=== PATIENT | male | born 1945 | race Caucasian/White ===

== ENCOUNTER 2019-01-30 07:53 | Emergency (ER) | payer OTHER ==
[2019-01-30] MEDS ORDERED: ALBUTEROL 2.5 MG/3 ML NEB SOL ONE (08:24)
[2019-01-30] MEDS ORDERED: FENTANYL CITR 100 MCG/2 ML ONE (08:25)
[2019-01-30] MEDS ORDERED: ONDANSETRON 4 MG/2 ML VIAL ONE (08:25)
[2019-01-30] MEDS ORDERED: NA CHLORIDE 0.9% 500 ML ONE (08:25)
[2019-01-30 08:48] LABS: Absolute Lymphocytes (CBC) 0.8 K/uL (0.7-4.9); Basophils % 0.7 % (0-1.3); Hematocrit 41.4 % (39.6-49.0); Lymphocytes % 6.8 % (15.3-44.8); MPV 9.2 fL (7.6-11.3); RBC Red Blood Cell Count 4.39 M/uL (4.33-5.43)
[2019-01-30 09:05] LABS: ALT/SGPT 16 U/L (12-78); AST/SGOT 12 U/L (15-37); Albumin 3.6 g/dL (3.4-5.0); Alkaline Phosphatase 66 U/L (45-117); BUN Blood Urea Nitrogen 13 mg/dL (7-18); Bicarbonate 29 mmol/L (21-32); Bilirubin Total 1.3 mg/dL (0.2-1.0); Glucose Level 115 mg/dL (74-106); Potassium 4.1 mmol/L (3.5-5.1); Sodium Level 138 mmol/L (136-145)
--- NOTE | 2019-01-30 10:31 | RAD REPORT ---
EXAM DESCRIPTION: CT - Head C Spine Cap W Con - 01/30/2019 9:40 am CLINICAL HISTORY: Trauma, head and neck injury. Chest, abdomen and pelvis pain. neck pain, right flank pain COMPARISON: No comparisonsChest Abdomen Pelvis W Cont dated 11/27/2015 TECHNIQUE: CT head without contrast. CT cervical spine without contrast with coronal and sagittal reformatted images. CT chest, abdomen and pelvis with IV contrast (approximately 100 mL nonionic IV contrast) with vann l and sagittal reformatted images of the spine. All CT scans are performed using dose optimization technique as appropriate and may include automated exposure control or mA/KV adjustment according to patient size. FINDINGS: CT HEAD WITHOUT CONTRAST: No intracranial hemorrhage, hydrocephalus or extra-axial fluid collection. No areas of brain edema o r midline shift. The paranasal sinuses and mastoids are clear. The calvarium is intact. CT CERVICAL SPINE WITHOUT CONTRAST: No fracture or subluxation. Mild upper cervical degenerative changes. The prevertebral soft tissues a re normal in thickness. CT CHEST, ABDOMEN, PELVIS WITH CONTRAST: The lungs are emphysematous.Nondisplaced right lateral fifth, sixth and seventh rib fractures.No pneu mothorax or pericardial/pleural fluid. No evidence of intra-abdominal visceral injury, free fluid or free air. Right renal stones are presen t without hydronephrosis. Moderate fat containing umbilical hernia. Small left inguinal hernia. Moderate lumbar degenerative changes. IMPRESSION: Nondisplaced right lateral fifth, sixth and seventh rib fractures without pneumothorax.
[2019-01-30] MEDS ORDERED: HYDROCODONE/APAP 7.5/325 MG TAB ONE (10:50)
--- NOTE | 2019-01-30 11:25 | ER ---
Nurse's Notes [facility] Name: Timbo Medrano Age: 73 yrs Sex: Male : 1945 Arrival Date: 01/30/2019 Time: 07:54 Bed 13 Private MD: Isaac Johnson Diagnosis: Multiple fractures of ribs, right side;Strain of muscle, fascia and tendon at neck level Presentation: 01/30 08:10 Presenting complaint: Patient states: fall from standing 2 days ago, tripped and fell iw to right side, now c/o right rib pain, neck pain, can't turn head all the way to the right, also has worsening cough that's now productive. Transition of care: patient was not received from another setting of care. Onset of symptoms was January 28, 2019. Risk Assessment: Do you want to hurt yourself or someone else? Patient reports no desire to harm self or others. Initial Sepsis Screen: Does the patient meet any 2 criteria? No. Patient's initial sepsis screen is negative. Does the patient have a suspected source of infection? No. Patient's initial sepsis screen is negative. Care prior to arrival: None. 08:10 Method Of Arrival: Ambulatory iw 08:10 Acuity: JULIO 3 iw Historical: - Allergies: 08:16 Latex, Natural Rubber; iw 08:16 PENICILLINS; iw 07:57 Latex, Natural Rubber; rb1 07:57 PENICILLINS; rb1 - Home Meds: 08:16 metoprolol tartrate 25 mg Oral tab 1 tab 2 times per day [Active]; pravastatin 80 mg iw oral tab 1 tab once daily [Active]; Vitamin B-12 1,000 mcg Oral tab daily [Active]; furosemide 20 mg Oral tab every other day [Active]; zinc sulfate 220 (50) mg oral cap daily [Active]; 08:24 Advair Diskus 250-50 mcg/dose Inhl dsdv 2 times per day [Active]; Ventolin iw Rotahaler/Rotacaps Inhl four times a day [Active]; albuterol sulfate 2.5 mg /3 mL (0.083 %) Inhl nebu 3 mL every 6 hours [Active]; Spiriva with HandiHaler 18 mcg inhalation CpDv 1 cap once daily [Active]; prednisone 10 mg Oral tab once daily [Active]; Daliresp 500 mcg Oral tab once daily [Active]; Synthroid 50 mcg Oral tab once daily [Active]; aspirin 81 mg Oral TbEC 1 tab once daily [Active]; - PMHx: 08:16 COPD; Hypertension; Hypothyroidism; lymphedema; iw 07:57 COPD; Hypertension; Hypothyroidism; lymphedema; rb1 - PSHx: 07:57 Hernia repair; rb1 - Immunization history:: Adult Immunizations up to date. - Social history:: Smoking status: Patient uses tobacco products, smokes one pack cigarettes per day. - Ebola Screening: : Patient negative for fever greater than or equal to 101.5 degrees Fahrenheit, and additional compatible Ebola Virus Disease symptoms. Screenin:57 Abuse screen: Denies threats or abuse. Nutritional screening: No deficits noted. rb1 Tuberculosis screening: No symptoms or risk factors identified. 08:40 Fall Risk Fall in past 12 months (25 points). No secondary diagnosis (0 pts). IV access rb1 (20 points). Ambulatory Aid- None/Bed Rest/Nurse Assist (0 pts). Gait- Normal/Bed Rest/Wheelchair (0 pts) Mental Status- Oriented to own ability (0 pts). Total Rodríguez Fall Scale indicates High Risk Score (45 or more points). Fall prevention measures have been instituted. Side Rails Up X 2 Placed Close to Nursing Station 1:1 Attendant Assigned Frequent Obs/Assessments Occuring Family Present and informed to notify staff if the need to leave the bedside As available patient and family educated on Fall Prevention Program and Strategies. Assessment: 07:57 General: Appears uncomfortable, Behavior is calm, cooperative. Pain: Complains of pain rb1 in back of neck, right ribs, and back Pain currently is 7 out of 10 on a pain scale. at worst was 10 out of 10 on a pain scale. Pain began 2-3 days ago. Neuro: Level of Consciousness is awake, alert, obeys commands, Oriented to person, place, time, situation. Cardiovascular: Capillary refill < 3 seconds is brisk in bilateral fingers. Respiratory: Reports cough that is productive, Airway is patent Respiratory effort is even, unlabored, Respiratory pattern is regular, symmetrical. GI: No signs and/or symptoms were reported involving the gastrointestinal system. : No signs and/or symptoms were reported regarding the genitourinary system. Derm: Skin is pink, warm \T\ dry. Musculoskeletal: Range of motion: intact in all extremities. 08:55 Reassessment: Patient appears in no apparent distress at this time. Patient and/or rb1 family updated on plan of care and expected duration. Pain level reassessed. Patient is alert, oriented x 3, equal unlabored respirations, skin warm/dry/pink. Pain 5/10 on ribs but pt reports neck is hurting worse. Provider notified. Received verbal order for Fentanyl 50 mcg IVP once. 100 % read back. 09:24 Reassessment: Pt. went to CT. rb1 10:00 Reassessment: Patient appears in no apparent distress at this time. Patient and/or rb1 family updated on plan of care and expected duration. Pain level reassessed. Patient is alert, oriented x 3, equal unlabored respirations, skin warm/dry/pink. 10:42 Reassessment: Patient appears in no apparent distress at this time. Patient and/or rb1 family updated on plan of care and expected duration. Pain level reassessed. Patient is alert, oriented x 3, equal unlabored respirations, skin warm/dry/pink. C/o neck pain 9/10. Provider notified. 11:40 Reassessment: Patient appears in no apparent distress at this time. Patient and/or rb1 family updated on plan of care and expected duration. Pain level reassessed. Patient is alert, oriented x 3, equal unlabored respirations, skin warm/dry/pink. 11:50 Reassessment: Discharge pending due to medication administration. rb1 Vital Signs: 08:16 BP 107 / 68; Pulse 93; Resp 22 S; Temp 97.8(O); Pulse Ox 100% on R/A; Weight 108.86 kg; iw Height 5 ft. 9 in. (175.26 cm); 09:16 BP 138 / 70; Pulse 87; Resp 26; Pulse Ox 100% on R/A; Pain 5/10; rb1 10:16 BP 121 / 57; Pulse 90; Resp 17; Pulse Ox 95% on R/A; Pain 7/10; rb1 11:16 BP 118 / 71; Pulse 87; Resp 20; Pulse Ox 96% on R/A; Pain 6/10; rb1 12:09 BP 118 / 70; Pulse 85; Resp 22; Temp 98.1; Pulse Ox 96% on R/A; Pain 5/10; rb1 08:16 Body Mass Index 35.44 (108.86 kg, 175.26 cm) iw ED Course: 07:54 Patient arrived in ED. as 07:55 Isaac Johnson DO is Private Physician. as 07:57 Darinel Garcia NP is PHCP. pm1 07:57 Warren Segura MD is Attending Physician. pm1 07:57 Patient has correct armband on for positive identification. Placed in gown. Bed in low rb1 position. Call light in reach. Side rails up X 1. Pulse ox on. NIBP on. Warm blanket given. 07:58 Meri Flores, RN is Primary Nurse. rb1 08:12 Triage completed. iw 08:16 Arm band placed on. iw 08:21 Radiology exam delayed due to lab results not completed at this time. (BUN/Creatinine). kw1 09:04 Radiology exam delayed due to lab results not completed at this time. (BUN/Creatinine). kw1 09:28 Initial lab(s) drawn, by me, sent to lab. Inserted saline lock: 20 gauge in right mh5 antecubital area, using aseptic technique. 09:40 CT completed. Patient tolerated procedure well. Patient moved back from CT. kw1 09:41 CT Traumagram (Head C Spine CAP W Con) In Process Unspecified. EDMS 12:16 No provider procedures requiring assistance completed. IV discontinued, intact, rb1 bleeding controlled, No redness/swelling at site. Pressure dressing applied. Administered Medications: 08:40 Drug: NS 0.9% 500 ml Route: IV; Rate: bolus; Site: right antecubital; rb1 09:15 Follow up: IV Status: Completed infusion rb1 08:40 Drug: Albuterol 2.5 mg Route: Inhalation; rb1 08:40 Drug: fentaNYL (PF) 25 mcg Route: IVP; Site: right antecubital; rb1 08:55 Follow up: Response: No adverse reaction; Pain is decreased rb1 08:40 Drug: Zofran 4 mg Route: IVP; Site: right antecubital; rb1 08:55 Follow up: Response: No adverse reaction rb1 09:23 Drug: fentaNYL (PF) 50 mcg Route: IVP; Site: right antecubital; rb1 10:00 Follow up: Response: No adverse reaction; Pain is decreased rb1 10:55 Drug: [place] (7.5 mg-325 mg) 1 tabs Route: PO; rb1 11:30 Follow up: Response: No adverse reaction; Pain is decreased rb1 11:49 Drug: TORadol - Ketorolac 15 mg Route: IVP; Site: right antecubital; rb1 12:07 Follow up: Response: No adverse reaction; Pain is decreased rb1 Outcome: 11:25 Discharge ordered by MD. pm1 12:16 Discharged to home ambulatory, with family. rb1 12:16 Condition: stable 12:16 Discharge instructions given to patient, Instructed on discharge instructions, follow up and referral plans. medication usage, Incentive Spirometer Demonstrated understanding of instructions, follow-up care, medications, Incentive Spirometer Prescriptions given X 3. 12:24 Patient left the ED. rb1 Signatures: Dispatcher [employer] Pratima [place], RN EMILY iw Meri Flores RN RN rb1 Darinel Garcia, SARAH UTILITY WORKER PRODUCTION pm1 Cheryle Oviedo 5 Sabrina Perez kw1
--- NOTE | 2019-01-30 11:26 | EDPHYS ---
Physician Documentation [facility] Name: Timbo Medrano Age: 73 yrs Sex: Male : 1945 Arrival Date: 01/30/2019 Time: 07:54 Bed 13 Private MD: Isaac Johnson ED Physician Warren Segura HPI: 01/30 08:18 This 73 yrs old Male presents to ER via Ambulatory with complaints of Neck pm1 Pain, >24Hrs Old, Rib Injury. 08:18 The patient or guardian complains of pain. The symptoms are located both sides of his pm1 neck, anterior and posterior right rib area. Onset: The symptoms/episode began/occurred 2 day(s) ago. Context: The problem was sustained at home, The neck injury/problem resulted from a fall. Associated signs and symptoms: Pertinent positives: history of COPD, always has a productive cough but feels the phlegm is thicker. No change in sputum color. No shortness of breath. No fever. Smokes 1 pack per day, Pertinent negatives: fever, No neurological symptoms were experienced by the patient prior to arrival in the emergency department. Modifying factors: the symptoms are aggravated by neck pain - movement to the right. Rib pain - palpation and deep breathing, coughing. Severity of symptoms: in the emergency department the symptoms are actually worse. Patient tripped on change in elevation of the concrete outside his house. Historical: - Allergies: 08:16 Latex, Natural Rubber; iw 08:16 PENICILLINS; iw 07:57 Latex, Natural Rubber; rb1 07:57 PENICILLINS; rb1 - Home Meds: 08:16 metoprolol tartrate 25 mg Oral tab 1 tab 2 times per day [Active]; pravastatin 80 mg iw oral tab 1 tab once daily [Active]; Vitamin B-12 1,000 mcg Oral tab daily [Active]; furosemide 20 mg Oral tab every other day [Active]; zinc sulfate 220 (50) mg oral cap daily [Active]; 08:24 Advair Diskus 250-50 mcg/dose Inhl dsdv 2 times per day [Active]; Ventolin iw Rotahaler/Rotacaps Inhl four times a day [Active]; albuterol sulfate 2.5 mg /3 mL (0.083 %) Inhl nebu 3 mL every 6 hours [Active]; Spiriva with HandiHaler 18 mcg inhalation CpDv 1 cap once daily [Active]; prednisone 10 mg Oral tab once daily [Active]; Daliresp 500 mcg Oral tab once daily [Active]; Synthroid 50 mcg Oral tab once daily [Active]; aspirin 81 mg Oral TbEC 1 tab once daily [Active]; - PMHx: 08:16 COPD; Hypertension; Hypothyroidism; lymphedema; iw 07:57 COPD; Hypertension; Hypothyroidism; lymphedema; rb1 - PSHx: 07:57 Hernia repair; rb1 - Immunization history:: Adult Immunizations up to date. - Social history:: Smoking status: Patient uses tobacco products, smokes one pack cigarettes per day. - Ebola Screening: : Patient negative for fever greater than or equal to 101.5 degrees Fahrenheit, and additional compatible Ebola Virus Disease symptoms. ROS: 08:19 Constitutional: Negative for fever, chills, and weight loss, Eyes: Negative for injury, pm1 pain, redness, and discharge, ENT: Negative for injury, pain, and discharge. 08:19 Abdomen/GI: Negative for abdominal pain, nausea, vomiting, diarrhea, and constipation. 08:19 Back: Negative for injury and pain, : Negative for injury, bleeding, discharge, and swelling, MS/Extremity: Negative for injury and deformity, Skin: Negative for injury, rash, and discoloration, Neuro: Negative for headache, weakness, numbness, tingling, and seizure. 08:19 Neck: Positive for pain with movement, of the left trapezius and right trapezius. 08:19 Cardiovascular: Positive for right lateral rib pain, Negative for chest pain, edema, orthopnea, palpitations. 08:19 Respiratory: Positive for cough, sputum that feels thicker without change in color, Negative for shortness of breath, wheezing. Exam: 08:19 Constitutional: This is a well developed, well nourished patient who is awake, alert, pm1 and in no acute distress. Head/Face: Normocephalic, atraumatic. Eyes: Pupils equal round and reactive to light, extra-ocular motions intact. Lids and lashes normal. Conjunctiva and sclera are non-icteric and not injected. Cornea within normal limits. Periorbital areas with no swelling, redness, or edema. ENT: Nares patent. No nasal discharge, no septal abnormalities noted. Tympanic membranes are normal and external auditory canals are clear. Oropharynx with no redness, swelling, or masses, exudates, or evidence of obstruction, uvula midline. Mucous membranes moist. 08:19 Chest/axilla: Normal chest wall appearance and motion. Nontender with no deformity. No lesions are appreciated. Cardiovascular: Regular rate and rhythm with a normal S1 and S2. No gallops, murmurs, or rubs. Normal PMI, no JVD. No pulse deficits. Respiratory: Lungs have equal breath sounds bilaterally, clear to auscultation and percussion. No rales, rhonchi or wheezes noted. No increased work of breathing, no retractions or nasal flaring. Abdomen/GI: Soft, non-tender, with normal bowel sounds. No distension or tympany. No guarding or rebound. No evidence of tenderness throughout. Back: No spinal tenderness. No costovertebral tenderness. Full range of motion. Skin: Warm, dry with normal turgor. Normal color with no rashes, no lesions, and no evidence of cellulitis. MS/ Extremity: Pulses equal, no cyanosis. Neurovascular intact. Full, normal range of motion. 08:19 Neck: External neck: tenderness, that is moderate, of the left trapezius and right trapezius, C-spine: vertebral tenderness, is not appreciated. 08:19 Neuro: Orientation: is normal, Motor: is normal, moves all fours. Vital Signs: 08:16 BP 107 / 68; Pulse 93; Resp 22 S; Temp 97.8(O); Pulse Ox 100% on R/A; Weight 108.86 kg; iw Height 5 ft. 9 in. (175.26 cm); 09:16 BP 138 / 70; Pulse 87; Resp 26; Pulse Ox 100% on R/A; Pain 5/10; rb1 10:16 BP 121 / 57; Pulse 90; Resp 17; Pulse Ox 95% on R/A; Pain 7/10; rb1 11:16 BP 118 / 71; Pulse 87; Resp 20; Pulse Ox 96% on R/A; Pain 6/10; rb1 12:09 BP 118 / 70; Pulse 85; Resp 22; Temp 98.1; Pulse Ox 96% on R/A; Pain 5/10; rb1 08:16 Body Mass Index 35.44 (108.86 kg, 175.26 cm) iw MDM: 07:57 Patient medically screened. pm1 11:24 Data reviewed: vital signs. Data interpreted: Pulse oximetry: on room air is 95 %. pm1 Interpretation: normal. Counseling: I had a detailed discussion with the patient and/or guardian regarding: the historical points, exam findings, and any diagnostic results supporting the discharge/admit diagnosis, lab results, radiology results, the need for outpatient follow up, to return to the emergency department if symptoms worsen or persist or if there are any questions or concerns that arise at home. 01/30 08:17 Order name: CBC with Diff; Complete Time: 09:05 pm1 01/30 08:17 Order name: CMP; Complete Time: 09:14 pm1 01/30 08:17 Order name: CT Traumagram (Head C Spine CAP W Con); Complete Time: 10:44 pm1 01/30 08:17 Order name: Creatinine for Radiology; Complete Time: 09:05 pm1 01/30 10:47 Order name: INCENTIVE SPIROMETRY pm1 01/30 08:17 Order name: Labs collected and sent; Complete Time: 08:45 pm1 Administered Medications: 08:40 Drug: NS 0.9% 500 ml Route: IV; Rate: bolus; Site: right antecubital; rb1 09:15 Follow up: IV Status: Completed infusion rb1 08:40 Drug: Albuterol 2.5 mg Route: Inhalation; rb1 08:40 Drug: fentaNYL (PF) 25 mcg Route: IVP; Site: right antecubital; rb1 08:55 Follow up: Response: No adverse reaction; Pain is decreased rb1 08:40 Drug: Zofran 4 mg Route: IVP; Site: right antecubital; rb1 08:55 Follow up: Response: No adverse reaction rb1 09:23 Drug: fentaNYL (PF) 50 mcg Route: IVP; Site: right antecubital; rb1 10:00 Follow up: Response: No adverse reaction; Pain is decreased rb1 10:55 Drug: [place] (7.5 mg-325 mg) 1 tabs Route: PO; rb1 11:30 Follow up: Response: No adverse reaction; Pain is decreased rb1 11:49 Drug: TORadol - Ketorolac 15 mg Route: IVP; Site: right antecubital; rb1 12:07 Follow up: Response: No adverse reaction; Pain is decreased rb1 Disposition: 13:51 Co-signature as Attending Physician, Warren Segura MD. rn Disposition: 01/30/19 11:25 Discharged to Home. Impression: Multiple fractures of ribs, right side, Strain of muscle, fascia and tendon at neck level. - Condition is Stable. - Discharge Instructions: Muscle Strain, Rib Fracture, Incentive Spirometer. - Prescriptions for orphenadrine citrate 100 mg Oral Tablet Sustained Release - take 1 tablet by ORAL route 2 times per day As needed; 20 tablet. Ultracet 37.5- 325 mg Oral Tablet - take 1 tablet by ORAL route every 6 hours - for up to 5 days; do not exceed 8 tablets per day.; 30 tablet. Zithromax Z- Jose A 250 mg Oral Tablet - take 1 tablet by ORAL route as directed for 5 days Day 1 - take two (2) tablets one time. Day 2, 3, 4 , 5 take one (1) tablet once daily.; 6 tablet. - Medication Reconciliation Form, Thank You Letter, Antibiotic Education, Prescription Opioid Use form. - Follow up: Emergency Department; When: As needed; Reason: Worsening of condition. Follow up: Private Physician; When: 2 - 3 days; Reason: Recheck today's complaints, Continuance of care, Re-evaluation by your physician. - Problem is new. - Symptoms have improved. Signatures: Dispatcher [employer] EDArielle Miguel RN RN iw Nieto, Roman, MD MD rn Barber, Rebecca, RN RN rb1 Darinel Garcia, SARAH WARP SCOURING VAT TENDER pm1 Corrections: (The following items were deleted from the chart) 12:24 11:25 01/30/2019 11:25 Discharged to Home. Impression: Multiple fractures of ribs, rb1 right side; Strain of muscle, fascia and tendon at neck level. Condition is Stable. Forms are Medication Reconciliation Form, Thank You Letter, Antibiotic Education, Prescription Opioid Use. Follow up: Emergency Department; When: As needed; Reason: Worsening of condition. Follow up: Private Physician; When: 2 - 3 days; Reason: Recheck today's complaints, Continuance of care, Re-evaluation by your physician. Problem is new. Symptoms have improved. pm1
[2019-01-30] MEDS ORDERED: KETOROLAC 30 MG/ML INJ ONE (11:43)
[2019-01-30 13:04] VITALS: O2SAT 96
[2019-01-30 13:05] VITALS: BP 118/70; TEMP 98.1
== END 2019-01-30 12:24 | disposition home or self-care (01) ==
LOC: ER 07:53
DX: S22.41XA Multiple fractures of ribs, right side, initial encounter for closed fracture (principal); S16.1XXA Strain of muscle, fascia and tendon at neck level, initial encounter; W01.198A Fall on same level from slipping, tripping and stumbling with subsequent striking against other object, initial encounter; Y93.9 Activity, unspecified; Z88.0 Allergy status to penicillin; Z91.040 Latex allergy status; E03.9 Hypothyroidism, unspecified; I10 Essential (primary) hypertension; J44.9 Chronic obstructive pulmonary disease, unspecified; I89.0 Lymphedema, not elsewhere classified; F17.210 Nicotine dependence, cigarettes, uncomplicated
CPT/HCPCS: 96361; 85025; 36415; 80053; 70450; 72125; 71260; 74177; 96375; 96374; 99285; Q9967; J3010; J7040; J2405

== ENCOUNTER 2019-03-15 10:19 | Emergency (ER) | payer OTHER ==
[2019-03-15] MEDS ORDERED: NA CHLORIDE 0.9% 100 ML IV ONE (11:10)
[2019-03-15] MEDS ORDERED: ASPIRIN 325 MG TAB ONE (11:10)
[2019-03-15] MEDS ORDERED: ALBUTEROL 2.5 MG/3 ML NEB SOL ONE (11:10)
[2019-03-15] MEDS ORDERED: CEFTRIAXONE/SWI 1gm 1 GM/10 ML SYR ONE (11:10)
[2019-03-15] MEDS ORDERED: METHYLPREDNISOLONE 125 MG INJ ONE (11:10)
[2019-03-15] MEDS ORDERED: IPRATROPIUM BROM 0.5MG/2.5ML ONE (11:10)
[2019-03-15 11:11] LABS: Absolute Lymphocytes (CBC) 1.7 K/uL (0.7-4.9); Basophils % 0.5 % (0-1.3); Hematocrit 42.7 % (39.6-49.0); MPV 8.1 fL (7.6-11.3); RBC Red Blood Cell Count 4.52 M/uL (4.33-5.43)
[2019-03-15 11:17] LABS: Protime INR 0.96
[2019-03-15 11:29] LABS: ALT/SGPT 20 U/L (12-78); AST/SGOT 13 U/L (15-37); Albumin 3.8 g/dL (3.4-5.0); Alkaline Phosphatase 76 U/L (45-117); BUN Blood Urea Nitrogen 14 mg/dL (7-18); Bicarbonate 31 mmol/L (21-32); Bilirubin Direct 0.2 mg/dL (0-0.2); Bilirubin Total 0.6 mg/dL (0.2-1.0); CKMB Creatine Kinase MB 1.6 ng/mL (0.3-3.6); Creatine Phosphokinase 72 U/L (39-308); Glucose Level 119 mg/dL (74-106); Lipase 96 U/L (73-393); Magnesium 1.7 mg/dL (1.8-2.4); NT PRO-BNP 179 pg/mL (<450); Potassium 3.4 mmol/L (3.5-5.1); Protein, Total 7.3 g/dL (6.4-8.2); Sodium Level 142 mmol/L (136-145); Troponin (Emerg Dept Use Only) < 0.02 ng/mL (0.0-0.045)
[2019-03-15] MEDS ORDERED: AZITHROMYCIN IV 500 MG in NA CHLORIDE 0.9% 250 ML IVPB ONE (11:30)
[2019-03-15] MEDS ORDERED: MORPHINE 4 MG/ML SYR ONE (11:45)
[2019-03-15] MEDS ORDERED: ONDANSETRON 4 MG/2 ML VIAL ONE (11:46)
--- NOTE | 2019-03-15 12:02 | RAD REPORT ---
EXAM DESCRIPTION: RAD - Chest Single View - 03/15/2019 11:10 am CLINICAL HISTORY: Chest pain, shortness of breath COMPARISON: November 2013 TECHNIQUE: AP portable chest image was obtained 1047 hours . FINDINGS: Patient has a prominent interstitial lung pattern is similar or slightly progressive from 2014. More focally there is increased opacification at the right base. Patient has a prominent right pericardial fat pad. Right base infiltrate is suspected but needs correlation with clinical presentat ion. Heart and vasculature are normal. No measurable pleural effusion and no pneumothorax. No acute bony abnormality seen. No acute aortic findings suspected. IMPRESSION: Suspected right lung base pneumonia superimposed on chronic interstitial pattern. Assessment is limited by portable technique and body habitus. Follow-up two view imaging can be obtai thong as warranted.
--- NOTE | 2019-03-15 12:47 | EDPHYS ---
Physician Documentation [facility] Name: Timbo Medrano Age: 74 yrs Sex: Male : 1945 Arrival Date: 03/15/2019 Time: 10:21 Bed 5 Private MD: Alex [facility] ED Physician Linsey Moore HPI: 03/15 12:42 This 74 yrs old Male presents to ER via Wheelchair with complaints of Cough, ma2 Chest Congestion, Chest Pain. 12:42 Onset: The symptoms/episode began/occurred gradually, 3 day(s) ago. Severity of ma2 symptoms: At their worst the symptoms were moderate, in the emergency department the symptoms are unchanged. Associated signs and symptoms: Pertinent negatives: diarrhea, fever, nausea, vomiting. Associated signs and symptoms: Pertinent positives: Pertinent negatives: chest pain. The patient has not experienced similar symptoms in the past. Historical: - Allergies: 10:36 Latex, Natural Rubber; bp 10:36 PENICILLINS; bp - Home Meds: 10:36 Advair Diskus 250-50 mcg/dose Inhl dsdv 2 times per day [Active]; albuterol sulfate 2.5 bp mg /3 mL (0.083 %) Inhl nebu 3 mL every 6 hours [Active]; aspirin 81 mg Oral TbEC 1 tab once daily [Active]; Daliresp 500 mcg Oral tab once daily [Active]; furosemide 20 mg Oral tab Every other day [Active]; ipratropium-albuterol 0.5 mg-3 mg(2.5 mg base)/3 mL Inhl nebu [Active]; metoprolol tartrate 25 mg Oral tab 1 tab 2 times per day [Active]; prednisone 10 mg Oral tab [Active]; Spiriva with HandiHaler 18 mcg inhalation CpDv [Active]; Synthroid 50 mcg Oral tab once daily [Active]; - PMHx: 10:36 COPD; Hypertension; Hypothyroidism; lymphedema; bp - Immunization history:: Adult Immunizations up to date. - Social history:: Smoking status: Patient uses tobacco products, smokes one pack cigarettes per day. Patient/guardian denies using alcohol, street drugs, The patient lives with family. - Ebola Screening: : No symptoms or risks identified at this time. - Family history:: not pertinent. ROS: 12:42 Constitutional: Negative for fever, chills, and weight loss. ma2 12:42 All other systems are negative. Exam: 12:42 Constitutional: This is a well developed, well nourished patient who is awake, alert, ma2 and in no acute distress. ENT: Nares patent. No nasal discharge, no septal abnormalities noted. Tympanic membranes are normal and external auditory canals are clear. Oropharynx with no redness, swelling, or masses, exudates, or evidence of obstruction, uvula midline. Mucous membranes moist. Neck: Trachea midline, no thyromegaly or masses palpated, and no cervical lymphadenopathy. Supple, full range of motion without nuchal rigidity, or vertebral point tenderness. No Meningismus. Chest/axilla: Normal chest wall appearance and motion. Nontender with no deformity. No lesions are appreciated. Cardiovascular: Regular rate and rhythm with a normal S1 and S2. No gallops, murmurs, or rubs. Normal PMI, no JVD. No pulse deficits. Abdomen/GI: Soft, non-tender, with normal bowel sounds. No distension or tympany. No guarding or rebound. No evidence of tenderness throughout. Back: No spinal tenderness. No costovertebral tenderness. Full range of motion. MS/ Extremity: Pulses equal, no cyanosis. Neurovascular intact. Full, normal range of motion. Neuro: Awake and alert, GCS 15, oriented to person, place, time, and situation. Cranial nerves II-XII grossly intact. Motor strength 5/5 in all extremities. Sensory grossly intact. Cerebellar exam normal. Normal gait. 12:42 Respiratory: mild respiratory distress is noted, Respirations: normal, Breath sounds: wheezing: that is moderate, is heard diffusely. Vital Signs: 10:36 BP 143 / 87; Pulse 75; Resp 17; Temp 98.3; Pulse Ox 98% ; Weight 108.86 kg; Height 5 bp ft. 10 in. (177.80 cm); 11:37 BP 152 / 80; Pulse 80; Resp 16; Pulse Ox 96% ; bp 12:41 BP 130 / 74; Pulse 82; Resp 15; Pulse Ox 94% ; bp 10:36 Body Mass Index 34.44 (108.86 kg, 177.80 cm) bp MDM: 10:27 Patient medically screened. ma2 12:42 Differential Diagnosis: Bronchitis Influenza Upper Respiratory Infection Sinusitis. ms2 Data reviewed: vital signs, nurses notes. Counseling: I had a detailed discussion with the patient and/or guardian regarding: the historical points, exam findings, and any diagnostic results supporting the discharge/admit diagnosis, the presence of at least one elevated blood pressure reading (>120/80) during this emergency department visit. Response to treatment: the patient's symptoms have markedly improved after treatment. 12:42 ED course: i offered admission for pneumonia and sirs, he wants to go home, d-dimer age ma2 adjusted negative . 03/15 10:29 Order name: Basic Metabolic Panel ms2 03/15 10:29 Order name: CBC with Diff ms2 03/15 10:29 Order name: LFT's ms2 03/15 10:29 Order name: Magnesium [facility] 03/15 10:29 Order name: NT PRO-BNP [facility] 03/15 10:29 Order name: PT-INR ms2 03/15 10:29 Order name: Troponin (emerg Dept Use Only) [facility] 03/15 10:29 Order name: Blood Culture Adult (2) ms2 03/15 10:29 Order name: Ckmb ms2 03/15 10:29 Order name: CPK ms2 03/15 10:29 Order name: D-Dimer ms2 03/15 10:29 Order name: Lipase ms2 03/15 10:29 Order name: Ptt, Activated ms2 03/15 10:37 Order name: Flu ms2 03/15 10:29 Order name: XRAY Chest (1 view) ms2 03/15 11:14 Order name: CBC with Automated Diff; Complete Time: 12:32 EDMS 03/15 11:29 Order name: Basic Metabolic Panel; Complete Time: 12:32 EDMS 03/15 11:29 Order name: Liver (Hepatic) Function; Complete Time: 12:32 EDMS 03/15 11:29 Order name: Creatine Phosphokinase; Complete Time: 12:32 EDMS 03/15 11:29 Order name: CKMB Creatine Kinase MB; Complete Time: 12:32 EDMS 03/15 11:29 Order name: Troponin (Emerg Dept Use Only); Complete Time: 12:32 EDMS 03/15 11:29 Order name: NT PRO-BNP; Complete Time: 12:32 EDMS 03/15 11:29 Order name: Magnesium; Complete Time: 12:32 EDMS 03/15 11:29 Order name: Lipase; Complete Time: 12:32 EDMS 03/15 11:29 Order name: Influenza Screen (A ; Complete Time: 12:32 EDMS 03/15 11:33 Order name: Protime (+INR); Complete Time: 12:32 EDMS 03/15 11:33 Order name: PTT, Activated Partial Thromb; Complete Time: 12:32 EDMS 03/15 11:33 Order name: D-Dimer; Complete Time: 12:32 EDMS 03/15 12:04 Order name: RAD; Complete Time: 12:32 EDMS 03/15 10:29 Order name: EKG; Complete Time: 10:32 ma2 03/15 10:29 Order name: Cardiac monitoring; Complete Time: 10:51 ma2 03/15 10:29 Order name: EKG - Nurse/Tech; Complete Time: 10:51 ma2 03/15 10:29 Order name: IV Saline Lock; Complete Time: 10:51 ma2 03/15 10:29 Order name: Labs collected and sent; Complete Time: 11:07 ma2 03/15 10:29 Order name: O2 Per Protocol; Complete Time: 10:52 ma2 03/15 10:29 Order name: O2 Sat Monitoring; Complete Time: 10:52 ma2 Administered Medications: 11:00 Drug: Aspirin 325 mg Route: PO; bp 13:19 Follow up: Response: No adverse reaction bp 11:00 Drug: AtroVENT Aerosol 0.5 mg Route: Inhalation; bp 11:00 Drug: SOLU-Medrol 125 mg Route: IVP; Site: right antecubital; bp 13:19 Follow up: Response: No adverse reaction bp 11:00 Drug: Xopenex 1.25 mg Route: Inhalation; bp 11:00 Drug: Rocephin 1 grams Route: IV; Rate: calculated rate; Site: right antecubital; bp 13:19 Follow up: IV Status: Completed infusion; IV Intake: 50ml bp 11:20 Drug: AtroVENT Aerosol 0.5 mg Route: Inhalation; bp 11:40 Drug: AtroVENT Aerosol 0.5 mg Route: Inhalation; bp 11:48 Drug: morphine 4 mg Route: IVP; Site: right forearm; bp 13:18 Follow up: Response: Pain is decreased bp 11:49 Drug: Zofran 4 mg Route: IVP; Site: right forearm; bp 13:18 Follow up: Response: Nausea is decreased bp 12:00 Drug: AZITHromycin 500 mg Route: IVPB; Infused Over: 1 hrs; Site: right antecubital; bp 13:18 Follow up: IV Status: Completed infusion; IV Intake: 250ml bp Disposition: 03/15/19 12:46 Discharged to Home. Impression: Pneumonia due to other specified bacteria. - Condition is Stable. - Discharge Instructions: Community-Acquired Pneumonia, Adult. - Prescriptions for Tylenol- Codeine #3 300-30 mg Oral Tablet - take 2 tablet by ORAL route every 6 hours As needed; 30 tablet. Zithromax Z- Jose A 250 mg Oral Tablet - take 1 tablet by ORAL route as directed for 5 days Day 1 - take two (2) tablets one time. Day 2, 3, 4 , 5 take one (1) tablet once daily.; 6 tablet. Medrol (Jose A) 4 mg Oral Tablets, Dose Pack - take 1 tablet by ORAL route as directed - follow package instructions; 1 packet. - Medication Reconciliation Form, Thank You Letter, Antibiotic Education, Prescription Opioid Use form. - Follow up: Private Physician; When: Tomorrow; Reason: Continuance of care. Signatures: Dispatcher [employer] Donald Marroquin RN RN Linsey Santana MD MD ma2 Corrections: (The following items were deleted from the chart) 13:19 12:46 03/15/2019 12:46 Discharged to Home. Impression: Pneumonia due to other specified bp bacteria. Condition is Stable. Forms are Medication Reconciliation Form, Thank You Letter, Antibiotic Education, Prescription Opioid Use. Follow up: Private Physician; When: Tomorrow; Reason: Continuance of care. ma2
--- NOTE | 2019-03-15 12:47 | ER ---
Nurse's Notes [facility] Name: Timbo Medrano Age: 74 yrs Sex: Male : 1945 Arrival Date: 03/15/2019 Time: 10:21 Bed 5 Private MD: Isaac Johnson Diagnosis: Pneumonia due to other specified bacteria Presentation: 03/15 10:32 Presenting complaint: Patient states: SHORTNESS OF BREATH AND CP x3 DAYS. Transition of bp care: patient was not received from another setting of care. Onset of symptoms is unknown. Risk Assessment: Do you want to hurt yourself or someone else? Patient reports no desire to harm self or others. Initial Sepsis Screen: Does the patient meet any 2 criteria? RR > 20 per min. No. Patient's initial sepsis screen is negative. Does the patient have a suspected source of infection? No. Patient's initial sepsis screen is negative. Care prior to arrival: None. 10:32 Method Of Arrival: Wheelchair bp 10:32 Acuity: JULIO 2 bp Triage Assessment: 10:35 General: Appears distressed, comfortable, obese, Behavior is cooperative, appropriate bp for age, anxious. Pain: Complains of pain in chest. EENT: No deficits noted. Neuro: No deficits noted. Cardiovascular: Rhythm is sinus rhythm. Respiratory: Airway is patent Respiratory effort is even, labored, Breath sounds are coarse bilaterally. GI: No signs and/or symptoms were reported involving the gastrointestinal system. : No signs and/or symptoms were reported regarding the genitourinary system. Derm: No deficits noted. Musculoskeletal: No deficits noted. Historical: - Allergies: 10:36 Latex, Natural Rubber; bp 10:36 PENICILLINS; bp - Home Meds: 10:36 Advair Diskus 250-50 mcg/dose Inhl dsdv 2 times per day [Active]; albuterol sulfate 2.5 bp mg /3 mL (0.083 %) Inhl nebu 3 mL every 6 hours [Active]; aspirin 81 mg Oral TbEC 1 tab once daily [Active]; Daliresp 500 mcg Oral tab once daily [Active]; furosemide 20 mg Oral tab Every other day [Active]; ipratropium-albuterol 0.5 mg-3 mg(2.5 mg base)/3 mL Inhl nebu [Active]; metoprolol tartrate 25 mg Oral tab 1 tab 2 times per day [Active]; prednisone 10 mg Oral tab [Active]; Spiriva with HandiHaler 18 mcg inhalation CpDv [Active]; Synthroid 50 mcg Oral tab once daily [Active]; - PMHx: 10:36 COPD; Hypertension; Hypothyroidism; lymphedema; bp - Immunization history:: Adult Immunizations up to date. - Social history:: Smoking status: Patient uses tobacco products, smokes one pack cigarettes per day. Patient/guardian denies using alcohol, street drugs, The patient lives with family. - Ebola Screening: : No symptoms or risks identified at this time. - Family history:: not pertinent. Screenin:35 Abuse screen: Denies threats or abuse. Denies injuries from another. Nutritional bp screening: No deficits noted. Tuberculosis screening: No symptoms or risk factors identified. Fall Risk None identified. Assessment: 10:35 General: SEE TRIAGE NOTE. Pain: Pain radiates to back Pain began 2-3 days ago. bp 12:40 Reassessment: ALL CURRENT ORDERS COMPLETED, DISPO PENDING. bp 13:16 Reassessment: PT D/C HOME AMBULATORY WITH FAMILY, DX WITH COMMUNITY ACQUIRED PNEUMONIA. bp Vital Signs: 10:36 BP 143 / 87; Pulse 75; Resp 17; Temp 98.3; Pulse Ox 98% ; Weight 108.86 kg; Height 5 bp ft. 10 in. (177.80 cm); 11:37 BP 152 / 80; Pulse 80; Resp 16; Pulse Ox 96% ; bp 12:41 BP 130 / 74; Pulse 82; Resp 15; Pulse Ox 94% ; bp 10:36 Body Mass Index 34.44 (108.86 kg, 177.80 cm) bp ED Course: 10:21 Patient arrived in ED. am2 10:21 Isaac Johnson DO is Private Physician. am2 10:27 Linsey Moore MD is Attending Physician. ma2 10:32 Donald An, EMILY is Primary Nurse. bp 10:33 Triage completed. bp 10:35 Patient has correct armband on for positive identification. Bed in low position. Call bp light in reach. Side rails up X2. Adult w/ patient. personnel monitor on. Pulse ox on. NIBP on. 10:36 Arm band placed on. bp 10:42 EKG done, by certified emergency vehicle technician. reviewed by Linsey Moore MD. at1 10:59 Initial lab(s) drawn, by me, sent to lab. Flu and/or RSV swab sent to lab. Inserted dh3 saline lock: 20 gauge in right forearm, using aseptic technique. Blood collected. 10:59 First set of blood cultures drawn by me. dh3 11:15 Second set of blood cultures drawn by me. dh3 13:16 No provider procedures requiring assistance completed. IV discontinued, intact, bp bleeding controlled, No redness/swelling at site. Pressure dressing applied. Patient maintains SpO2 saturation greater than 95% on room air. Administered Medications: 11:00 Drug: Aspirin 325 mg Route: PO; bp 13:19 Follow up: Response: No adverse reaction bp 11:00 Drug: AtroVENT Aerosol 0.5 mg Route: Inhalation; bp 11:00 Drug: SOLU-Medrol 125 mg Route: IVP; Site: right antecubital; bp 13:19 Follow up: Response: No adverse reaction bp 11:00 Drug: Xopenex 1.25 mg Route: Inhalation; bp 11:00 Drug: Rocephin 1 grams Route: IV; Rate: calculated rate; Site: right antecubital; bp 13:19 Follow up: IV Status: Completed infusion; IV Intake: 50ml bp 11:20 Drug: AtroVENT Aerosol 0.5 mg Route: Inhalation; bp 11:40 Drug: AtroVENT Aerosol 0.5 mg Route: Inhalation; bp 11:48 Drug: morphine 4 mg Route: IVP; Site: right forearm; bp 13:18 Follow up: Response: Pain is decreased bp 11:49 Drug: Zofran 4 mg Route: IVP; Site: right forearm; bp 13:18 Follow up: Response: Nausea is decreased bp 12:00 Drug: AZITHromycin 500 mg Route: IVPB; Infused Over: 1 hrs; Site: right antecubital; bp 13:18 Follow up: IV Status: Completed infusion; IV Intake: 250ml bp Intake: 13:18 IV: 250ml; Total: 250ml. bp 13:19 IV: 50ml; Total: 300ml. bp Outcome: 12:46 Discharge ordered by MD. carrillo 13:16 Discharged to home ambulatory, with family. bp 13:16 Condition: stable 13:16 Discharge instructions given to patient, Instructed on discharge instructions, follow up and referral plans. medication usage, Demonstrated understanding of instructions, follow-up care, medications, Prescriptions given X 3. 13:19 Patient left the ED. bp Signatures: Anna Gallegos, sugar trucker EKG Tat1 Anna Swartz am2 Patito Mejia 3 Doanld An, RN RN bp Linsey Moore MD MD ma2
[2019-03-15] MEDS ORDERED: LEVALBUTEROL 1.25 MG/3 ML NEB ONE (13:23)
--- NOTE | 2019-03-16 07:56 | EKG ---
Test Date: 2019-03-15 Test Time: 10:36:37 Adult Parole Officer: LEILA MEASUREMENT RESULTS: Intervals: Rate: 78 MT: 146 QRSD: 94 QT: 370 QTc: 421 Addison: P: 79 MT: 146 QRS: -23 T: 41 INTERPRETIVE STATEMENTS: Sinus rhythm with occasional premature ventricular complexes Otherwise normal ECG Compared to ECG 07/31/2016 08:23:10 Ventricular premature complex(es) now present Electronically Signed On 03-16-19 07:56:17 AIR BRUSH ARTIST by Edy Camacho
== END 2019-03-15 13:19 | disposition home or self-care (01) ==
LOC: ER 10:19
DX: J15.8 Pneumonia due to other specified bacteria (principal); I10 Essential (primary) hypertension; F17.210 Nicotine dependence, cigarettes, uncomplicated; J44.9 Chronic obstructive pulmonary disease, unspecified; E03.9 Hypothyroidism, unspecified; Z79.82 Long term (current) use of aspirin; Z88.0 Allergy status to penicillin; Z91.040 Latex allergy status; Z91.048 Other nonmedicinal substance allergy status
CPT/HCPCS: 96365; 96368 ×2; 93005; 87040 ×2; 85025; 80048; 36415; 83735; 82550; 85610; 85379; 80076; 85730; 84484; 82553; 83690; 83880; 87804 ×2; 71045; 96375; 99285; 96366; J0456; J0696; J7030; J2930; J2405

== ENCOUNTER 2019-03-29 11:08 | Emergency (ER) | payer OTHER ==
[2019-03-29 11:47] LABS: Absolute Lymphocytes (CBC) 1.8 K/uL (0.7-4.9); Basophils % 0.5 % (0-1.3); Lymphocytes % 19.6 % (15.3-44.8); MPV 8.1 fL (7.6-11.3); RBC Red Blood Cell Count 4.43 M/uL (4.33-5.43)
[2019-03-29 11:53] LABS: Protime INR 1.06
[2019-03-29] MEDS ORDERED: FENTANYL CITR 100 MCG/2 ML ONE (12:01)
[2019-03-29] MEDS ORDERED: ONDANSETRON 4 MG/2 ML VIAL ONE (12:01)
[2019-03-29 12:05] LABS: BUN Blood Urea Nitrogen 13 mg/dL (7-18); Bicarbonate 31 mmol/L (21-32); Glucose Level 111 mg/dL (74-106); NT PRO-BNP 111 pg/mL (<450); Potassium 3.4 mmol/L (3.5-5.1); Sodium Level 143 mmol/L (136-145); Troponin (Emerg Dept Use Only) < 0.02 ng/mL (0.0-0.045)
--- NOTE | 2019-03-29 13:07 | ER ---
Nurse's Notes [facility] Name: Timbo Medrano Age: 74 yrs Sex: Male : 1945 Arrival Date: 03/29/2019 Time: 11:09 Bed 2 Private MD: Diagnosis: Pleurisy Presentation: 03/29 11:12 Presenting complaint: Patient states: He was diagnosed with pneumonia 2 weeks ago, he aj1 took antibiotics, he is feeling a little better but he is still having pain and coughing. Denies fever. Transition of care: patient was not received from another setting of care. Onset of symptoms was 2018. Risk Assessment: Do you want to hurt yourself or someone else? Patient reports no desire to harm self or others. Initial Sepsis Screen: Does the patient meet any 2 criteria? No. Patient's initial sepsis screen is negative. Does the patient have a suspected source of infection? Yes: Productive cough/pneumonia. Care prior to arrival: None. 11:12 Method Of Arrival: Ambulatory aj 11:12 Acuity: JULIO 3 aj1 Triage Assessment: 11:15 General: Appears in no apparent distress. comfortable, Behavior is calm, cooperative, aj1 appropriate for age. Pain: Complains of pain in chest Pain currently is 5 out of 10 on a pain scale. Neuro: Level of Consciousness is awake, alert, obeys commands. Cardiovascular: Patient's skin is warm and dry. Respiratory: Airway is patent Respiratory effort is even, unlabored, Respiratory pattern is regular, symmetrical. Historical: - Allergies: 11:15 Latex, Natural Rubber; aj1 11:15 PENICILLINS; aj1 - Home Meds: 11:15 Advair Diskus 250-50 mcg/dose Inhl dsdv 2 times per day [Active]; albuterol sulfate 2.5 aj1 mg /3 mL (0.083 %) Inhl nebu 3 mL every 6 hours [Active]; aspirin 81 mg Oral TbEC 1 tab once daily [Active]; Daliresp 500 mcg Oral tab once daily [Active]; furosemide 20 mg Oral tab Every other day [Active]; ipratropium-albuterol 0.5 mg-3 mg(2.5 mg base)/3 mL Inhl nebu [Active]; metoprolol tartrate 25 mg Oral tab 1 tab 2 times per day [Active]; prednisone 10 mg Oral tab [Active]; Spiriva with HandiHaler 18 mcg inhalation CpDv [Active]; Synthroid 50 mcg Oral tab once daily [Active]; - PMHx: 11:15 COPD; Hypertension; Hypothyroidism; lymphedema; aj1 - Immunization history:: Flu vaccine is up to date. - Social history:: Smoking status: Patient uses tobacco products, smokes one pack cigarettes per day. - Ebola Screening: : Patient denies travel to an Ebola-affected area in the 21 days before illness onset. Screenin:00 Abuse screen: Denies threats or abuse. Denies injuries from another. Nutritional sv screening: No deficits noted. Tuberculosis screening: No symptoms or risk factors identified. Fall Risk None identified. Assessment: 12:00 General: Appears in no apparent distress. uncomfortable, well groomed, well developed, sv Behavior is calm, cooperative, appropriate for age. Pain: Complains of pain in anterior aspect of right upper chest and right breast Pain does not radiate. Pain currently is 5 out of 10 on a pain scale. Quality of pain is described as sharp, Pain began 1 day ago. Is intermittent. Neuro: Level of Consciousness is awake, alert, obeys commands, Oriented to person, place, time, situation, Moves all extremities. Full function Gait is steady, Speech is normal. Respiratory: Airway is patent Respiratory effort is even, unlabored, Respiratory pattern is regular, symmetrical, Breath sounds are clear in left upper lobe, left lower lobe, left posterior upper lobe and left posterior lower lobe Breath sounds with rhonchi in right upper lobe, right middle lobe, right posterior upper lobe and right posterior middle lobe. Derm: Skin is intact, Skin is pink, warm \T\ dry. 14:00 Reassessment: Patient appears in no apparent distress at this time. Patient and/or sv family updated on plan of care and expected duration. Pain level reassessed. Patient is alert, oriented x 3, equal unlabored respirations, skin warm/dry/pink. Vital Signs: 11:15 BP 141 / 70; Pulse 85; Resp 18; Temp 97.4; Pulse Ox 98% on R/A; Weight 101.6 kg (R); aj1 Height 5 ft. 9 in. (175.26 cm) (R); 12:30 BP 110 / 70; Pulse 60; Resp 20; Pulse Ox 94% on R/A; sv 14:00 BP 122 / 71; Pulse 65; Resp 18; Pulse Ox 98% on R/A; sv 11:15 Body Mass Index 33.08 (101.60 kg, 175.26 cm) aj1 ED Course: 11:09 Patient arrived in ED. rg4 11:14 Triage completed. aj1 11:15 Arm band placed on Patient placed in an exam room. aj1 11:16 Sumeet Avalos PA is PHCP. jr8 11:16 Prasanth Corona MD is Attending Physician. jr8 11:46 Inserted saline lock: 22 gauge in right antecubital area, using aseptic technique. kj1 Blood collected. 11:55 Alia Iyer, EMILY is Primary Nurse. sv 12:00 Patient has correct armband on for positive identification. Bed in low position. Call sv light in reach. Adult w/ patient. Pulse ox on. NIBP on. Door closed. Head of bed elevated. 12:00 Patient maintains SpO2 saturation greater than 95% on room air. sv 12:13 Awaiting lab results, Awaiting for x-ray. sv 12:40 XRAY Chest Pa And Lat (2 Views) In Process Unspecified. EDMS 14:05 No provider procedures requiring assistance completed. IV discontinued, intact, sv bleeding controlled, No redness/swelling at site. Pressure dressing applied. Administered Medications: 12:04 Drug: Zofran 4 mg Route: IVP; Site: right antecubital; sv 12:30 Follow up: Response: No adverse reaction sv 12:07 Drug: fentaNYL (PF) 50 mcg Route: IVP; Site: right antecubital; sv 12:30 Follow up: Response: No adverse reaction; Marked relief of symptoms; Pain is decreased; sv RASS: Alert and Calm (0) Outcome: 13:07 Discharge ordered by . jr8 14:05 Patient left the ED. sg 14:05 Discharged to home via wheelchair, with family. sv 14:05 Condition: stable 14:05 Discharge instructions given to patient, Instructed on discharge instructions, follow up and referral plans. medication usage, Demonstrated understanding of instructions, follow-up care, medications, Prescriptions given X 2. Signatures: Dispatcher [employer] EDCO Harmony Moctezuma RN RN aj Alia Iyer RN RN sv Gerson Goss RN RN Sumeet Avalos PA PA jr8 Hannah Lima rg4 Milady Moran kj1
--- NOTE | 2019-03-29 13:08 | EDPHYS ---
Physician Documentation [facility] Name: Timbo Medrano Age: 74 yrs Sex: Male : 1945 Arrival Date: 03/29/2019 Time: 11:09 Bed 2 Private MD: ED Physician Prasanth [place] HPI: 03/29 11:56 This 74 yrs old Male presents to ER via Ambulatory with complaints of Chest jr8 Pain. 11:56 The patient or guardian reports chest pain that is located primarily in the anterior jr8 chest wall, right. Onset: gradually, 2 week(s) ago. The pain does not radiate. Associated signs and symptoms: Pertinent positives: cough. Duration: The patient or guardian reports multiple episodes, that are intermittent. Modifying factors: The symptoms are alleviated by nothing. the symptoms are aggravated by cough, deep breath. Severity of pain: At its worst the pain was moderate in the emergency department the pain is unchanged. The patient has not experienced similar symptoms in the past. The patient has been recently seen by a physician:. Patient was recently diagnosed with pneumonia about 2 weeks ago. Stated that he overall is feeling much better but still having chest pain on right side with cough and breathing. Historical: - Allergies: 11:15 Latex, Natural Rubber; aj1 11:15 PENICILLINS; aj1 - Home Meds: 11:15 Advair Diskus 250-50 mcg/dose Inhl dsdv 2 times per day [Active]; albuterol sulfate 2.5 aj1 mg /3 mL (0.083 %) Inhl nebu 3 mL every 6 hours [Active]; aspirin 81 mg Oral TbEC 1 tab once daily [Active]; Daliresp 500 mcg Oral tab once daily [Active]; furosemide 20 mg Oral tab Every other day [Active]; ipratropium-albuterol 0.5 mg-3 mg(2.5 mg base)/3 mL Inhl nebu [Active]; metoprolol tartrate 25 mg Oral tab 1 tab 2 times per day [Active]; prednisone 10 mg Oral tab [Active]; Spiriva with HandiHaler 18 mcg inhalation CpDv [Active]; Synthroid 50 mcg Oral tab once daily [Active]; - PMHx: 11:15 COPD; Hypertension; Hypothyroidism; lymphedema; aj1 - Immunization history:: Flu vaccine is up to date. - Social history:: Smoking status: Patient uses tobacco products, smokes one pack cigarettes per day. - Ebola Screening: : Patient denies travel to an Ebola-affected area in the 21 days before illness onset. ROS: 11:56 Eyes: Negative for injury, pain, redness, and discharge, ENT: Negative for injury, jr8 pain, and discharge, Neck: Negative for injury, pain, and swelling, Abdomen/GI: Negative for abdominal pain, nausea, vomiting, diarrhea, and constipation, Back: Negative for injury and pain, MS/Extremity: Negative for injury and deformity, Skin: Negative for injury, rash, and discoloration, Neuro: Negative for headache, weakness, numbness, tingling, and seizure. 11:56 Cardiovascular: Positive for chest pain, Negative for edema, orthopnea, palpitations, paroxysmal nocturnal dyspnea. 11:56 Respiratory: Positive for cough, with green sputum, Negative for dyspnea on exertion, shortness of breath. Exam: 11:56 Eyes: Pupils equal round and reactive to light, extra-ocular motions intact. Lids and jr8 lashes normal. Conjunctiva and sclera are non-icteric and not injected. Cornea within normal limits. Periorbital areas with no swelling, redness, or edema. ENT: Nares patent. No nasal discharge, no septal abnormalities noted. Tympanic membranes are normal and external auditory canals are clear. Oropharynx with no redness, swelling, or masses, exudates, or evidence of obstruction, uvula midline. Mucous membranes moist. Neck: Trachea midline, no thyromegaly or masses palpated, and no cervical lymphadenopathy. Supple, full range of motion without nuchal rigidity, or vertebral point tenderness. No Meningismus. Chest/axilla: Normal chest wall appearance and motion. Nontender with no deformity. No lesions are appreciated. Cardiovascular: Regular rate and rhythm with a normal S1 and S2. No gallops, murmurs, or rubs. Normal PMI, no JVD. No pulse deficits. Respiratory: Lungs have equal breath sounds bilaterally, clear to auscultation and percussion. No rales, rhonchi or wheezes noted. No increased work of breathing, no retractions or nasal flaring. Abdomen/GI: Soft, non-tender, with normal bowel sounds. No distension or tympany. No guarding or rebound. No evidence of tenderness throughout. Back: No spinal tenderness. No costovertebral tenderness. Full range of motion. Skin: Warm, dry with normal turgor. Normal color with no rashes, no lesions, and no evidence of cellulitis. MS/ Extremity: Pulses equal, no cyanosis. Neurovascular intact. Full, normal range of motion. Neuro: Awake and alert, GCS 15, oriented to person, place, time, and situation. Cranial nerves II-XII grossly intact. Motor strength 5/5 in all extremities. Sensory grossly intact. Cerebellar exam normal. Normal gait. Vital Signs: 11:15 BP 141 / 70; Pulse 85; Resp 18; Temp 97.4; Pulse Ox 98% on R/A; Weight 101.6 kg (R); aj1 Height 5 ft. 9 in. (175.26 cm) (R); 12:30 BP 110 / 70; Pulse 60; Resp 20; Pulse Ox 94% on R/A; sv 14:00 BP 122 / 71; Pulse 65; Resp 18; Pulse Ox 98% on R/A; sv 11:15 Body Mass Index 33.08 (101.60 kg, 175.26 cm) [facility] MDM: 11:16 Patient medically screened. jr8 13:06 Data reviewed: vital signs, nurses notes, lab test result(s), EKG, radiologic studies, [facility] plain films, and as a result, I will discharge patient. Data interpreted: Pulse oximetry: on room air is 94 %. Interpretation: acceptable. Counseling: I had a detailed discussion with the patient and/or guardian regarding: the historical points, exam findings, and any diagnostic results supporting the discharge/admit diagnosis, lab results, radiology results, the need for outpatient follow up, a family practitioner, to return to the emergency department if symptoms worsen or persist or if there are any questions or concerns that arise at home. ED course: Pain is better. Imaging today when compared to two weeks ago has marked improvement. Explained to patient that he is still having pleuritic pain from the infection. Will try on steroids and NSAID . 03/29 11:24 Order name: Basic Metabolic Panel; Complete Time: 12:07 jr8 03/29 11:24 Order name: CBC with Diff; Complete Time: 11:53 jr8 03/29 11:24 Order name: NT PRO-BNP; Complete Time: 12:07 jr8 03/29 11:24 Order name: PT-INR; Complete Time: 11:58 03/29 11:24 Order name: Troponin (emerg Dept Use Only); Complete Time: 12:07 [facility] 03/29 11:24 Order name: XRAY Chest Pa And Lat (2 Views); Complete Time: 13:43 03/29 11:24 Order name: EKG; Complete Time: 11:25 [facility] 03/29 11:24 Order name: Cardiac monitoring; Complete Time: 11:56 [facility] 03/29 11:24 Order name: EKG - Nurse/Tech; Complete Time: 11:56 03/29 11:24 Order name: IV Saline Lock; Complete Time: 11:56 [facility] 03/29 11:24 Order name: Labs collected and sent; Complete Time: 11:56 [facility] 03/29 11:24 Order name: O2 Per Protocol; Complete Time: 11:56 [facility] 03/29 11:24 Order name: O2 Sat Monitoring; Complete Time: 11:56 Administered Medications: 12:04 Drug: Zofran 4 mg Route: IVP; Site: right antecubital; sv 12:30 Follow up: Response: No adverse reaction sv 12:07 Drug: fentaNYL (PF) 50 mcg Route: IVP; Site: right antecubital; sv 12:30 Follow up: Response: No adverse reaction; Marked relief of symptoms; Pain is decreased; sv RASS: Alert and Calm (0) Disposition: 03/29/19 13:07 Discharged to Home. Impression: Pleurisy. - Condition is Stable. - Discharge Instructions: Pleurisy. - Prescriptions for Ibuprofen 800 mg Oral Tablet - take 1 tablet by ORAL route every 12 hours As needed take with food; 20 tablet. Tylenol- Codeine #3 300-30 mg Oral Tablet - take 2 tablets by ORAL route every 6 hours As needed; 12 tablet. Medrol (Jose A) 4 mg Oral Tablets, Dose Pack - take 1 tablet by ORAL route as directed - follow package instructions; 1 packet. - Medication Reconciliation Form, Thank You Letter, Antibiotic Education, Prescription Opioid Use form. - Follow up: Private Physician; When: 5 - 6 days; Reason: Recheck today's complaints, Continuance of care, Re-evaluation by your physician. - Problem is new. - Symptoms have improved. - Notes: Can take 1-2 pills of COLACE once a day for constipation associated with pain medication Addendum: 04/04/2019 11:09 Co-signature as Attending Physician, Prasanth [place] MD I agree with the assessment and c torres plan of care. Signatures: Dispatcher [employer] Harmony Chamberlain RN RN aj1 Alia Iyer RN RN sv Gerson Goss RN RN sg Anderson, Corey, MD MD cha Roszak, Josh, PA PA jr8 Corrections: (The following items were deleted from the chart) 03/29 14:05 13:07 03/29/2019 13:07 Discharged to Home. Impression: Pleurisy. Condition is Stable. sg Forms are Medication Reconciliation Form, Thank You Letter, Antibiotic Education, Prescription Opioid Use. Follow up: Private Physician; When: 5 - 6 days; Reason: Recheck today's complaints, Continuance of care, Re-evaluation by your physician. Problem is new. Symptoms have improved. jr8
--- NOTE | 2019-03-29 13:38 | RAD REPORT ---
EXAM DESCRIPTION: RAD - Chest Pa And Lat (2 Views) - 03/29/2019 12:43 pm CLINICAL HISTORY: recent pneumonia;Chest pain;Cough COMPARISON: March 15, November 2013, April 2013 TECHNIQUE: PA and lateral views of the chest were obtained. FINDINGS: The lungs are normal volume. Pleural thickening along the right lateral chest has not daphnie nged. This may be a prominent pericardial fat pad. A similar appearance has been seen back to 2013. T here is better aeration in the right base. The mild right base infiltrate may have resolved since Feb ember . Patient has a baseline prominent interstitial pattern. No new or progressive lung parenchym al process. Heart size is normal. No vascular engorgement. No pleural effusion or pneumothorax seen. No acute jag ny finding noted. No aortic abnormality. IMPRESSION: Chronic pleural and parenchymal changes are present similar to comparison. Improved aeration of the right base. Most of the right base opacification is believed to be a promine nt pericardial fat pad.
[2019-03-29 14:14] VITALS: TEMP 97.4
[2019-03-29 14:15] VITALS: BP 110/70; O2SAT 94
--- NOTE | 2019-03-30 18:37 | EKG ---
Test Date: 2019-03-29 Test Time: 12:01:06 Gyroscopic Instrument Tester: OPAL MEASUREMENT RESULTS: Intervals: Rate: 67 MN: 152 QRSD: 102 QT: 382 QTc: 403 Kellogg: P: 70 MN: 152 QRS: -3 T: 44 INTERPRETIVE STATEMENTS: Sinus rhythm with premature atrial complexes Septal infarct, age undetermined Abnormal ECG Compared to ECG 03/15/2019 10:36:37 Atrial premature complex(es) now present Myocardial infarct finding now present Ventricular premature complex(es) no longer present Electronically Signed On 03-30-19 18:37:06 [employer] by Edy Camacho
== END 2019-03-29 14:05 | disposition home or self-care (01) ==
LOC: ER 11:08
DX: R09.1 Pleurisy (principal); F17.210 Nicotine dependence, cigarettes, uncomplicated; I10 Essential (primary) hypertension; E03.9 Hypothyroidism, unspecified; J44.9 Chronic obstructive pulmonary disease, unspecified; Z79.82 Long term (current) use of aspirin; Z88.0 Allergy status to penicillin; Z91.040 Latex allergy status; Z91.048 Other nonmedicinal substance allergy status
CPT/HCPCS: 93005; 85025; 80048; 36415; 85610; 84484; 83880; 71046; 96375; 96374; 99284; J3010; J2405

== ENCOUNTER 2019-10-14 09:15 | Emergency (ER) | payer OTHER ==
--- OUTSIDE RECORDS SUMMARY | 2019-10-14 09:20 | XMS REPORT | Continuity of Care Document ---
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 eye of Eye 00:00: Practic 00 e Hypothyroi Hypothyroi Problem Active [facility] dism dism - Family 00:00: Practic 00 e Hyperchole Hyperchole Problem Active [facility] sterolemia sterolemia 08-08 Fa agustin 00:00: Practic 00 e Hypertensi Hypertensi Problem Active [facility] ve ve - Family disorder Disorder 00:00: Practi c 00 e Chronic Chronic Problem Active [place] obstructiv Obstructiv 08-08 [facility] e lung e Lung 00:00: Practic disease Disease 00 e Gastroesop Gastroesop Problem Active [facility] hageal hageal - Family reflux Reflux 00:00: Practic disease Disease 00 e without without esophagiti Esophagiti s s Mixed Mixed Problem Active [facility] hyperlipid hyperlipid [place] - emia emia [facility] Hypothyroi Hypothyroi Problem Active [facility] Low back Low back Problem Active [facility] pain [facility]ics Tobacco Tobacco Problem Active [facility] use use [facility] - disorder disorder Memori a l [facility] Osteoarthr Osteoarthr Problem Active [facility] itis, itis, [facility] - generalize generalize Me moria d d l [facility] GERD GERD Problem Active [facility] without without [facility] - esophagiti esophagiti Me moria s s l [facility]ics Essential Essential Problem Active [facility] hypertensi hypertensi [place] - on on [facility]oria l [facility]ics Senile Senile Problem Active [facility] cataract cataract [facility] - of right of right Memori a eye, eye, l unspecifie unspecifie Ou tpati d d ent age-relate age-relate Cl inics d cataract d cataract type type COPD COPD Problem Active [facility] (chronic (chronic [facility] - obstructiv obstructiv Me moria e e l pulmonary pulmonary Outp ati disease) disease) ent Clinics At high At high Problem Active [facility] risk for risk for [facility] - falls falls [facility] Peripheral Peripheral Problem Active [facility] edema edema [facility] - [facility] Other Other Problem Active [facility] chronic chronic [facility] - pain pain [facility] Allergies, Adverse Reactions, Alerts Allergy Allergy Status Severity Reaction(s) Onset Inactive Treating Comm ents Source Name Type Date Date Clinician Latex Allergy Active Mild to Hives [place] to moderate Family substanc Practic e e PENICILL Allergy Active Moderate Rash Ribera ge INS to Family substanc Practic e e Latex Adverse Active Info Not [facility] Reaction Available [facility][note 2] penicill Adverse Active Info Not [facility] in Reaction Available [facility][note 2] Social History Smoking Status Start Date Stop Date Source Light Tobacco Smoker [facility] Practice Medications Ordered Filled Start Stop Current Ordering Indication Dosage Frequency Signature Comments Components Source Medication Medication Date Date Medication? Clinician (SIG) Name Name albuterol albuterol No 1mL Q1D albuterol [facility] sulfate sulfate sulfate [facility] 0.63 mg/3 0.63 mg/3 0.63 mg/3 Practic mL solution mL solution mL e for for solution nebulizatio nebulizatio for n Inhale 1 n Inhale 1 nebulizati mL every mL every on Inhale day by day by 1 mL every inhalation inhalation day by route. route. inhalation route. Cosopt 22.3 Cosopt 22.3 No Cosopt [place] mg-6.8 mg-6.8 22.3 Family mg/mL eye mg/mL eye mg-6.8 Pra ctic drops drops mg/mL eye e INSTILL 1 INSTILL 1 drops DROP INTO DROP INTO INSTILL 1 AFFECTED AFFECTED DROP INTO EYE(S) BY EYE(S) BY AFFECTED OPHTHALMIC OPHTHALMIC EYE(S) BY ROUTE 2 ROUTE 2 OPHTHALMIC TIMES PER TIMES PER ROUTE 2 DAY DAY TIMES PER DAY levothyroxi levothyroxi No 1capsul Q1D levothyrox [facility] ne 125 mcg ne 125 mcg e(s) ine 125 Family capsule capsule mcg Practic Take 1 Take 1 capsule e capsule capsule Take 1 every day every day capsule by oral by oral every day route. route. by oral route. metoprolol metoprolol No 1capsul Q1D metoprolol [facility] succinate succinate e(s) succinate Family ER 50 mg ER 50 mg ER 50 mg Pra ctic capsule capsule capsule e sprinkle, sprinkle, sprinkle, ext. ext. ext. release 24 release 24 release 24 hr Take 1 hr Take 1 hr Take 1 capsule capsule capsule every day every day every day by oral by oral by oral route. route. route. moxifloxaci moxifloxaci No moxifloxac [place] n 0.5 % eye n 0.5 % eye in 0.5 % Family drops drops eye drops Practic INSTILL 1 INSTILL 1 INSTILL 1 e DROP INTO DROP INTO DROP INTO AFFECTED AFFECTED AFFECTED EYE(S) BY EYE(S) BY EYE(S) BY OPHTHALMIC OPHTHALMIC OPHTHALMIC ROUTE 3 ROUTE 3 ROUTE 3 TIMES PER TIMES PER TIMES PER DAY DAY DAY pantoprazol pantoprazol No 2 Q1D pantoprazo [place] e 20 mg e 20 mg le 20 mg Famil y tablet,javid tablet,javid tablet,del Practic yed release yed release ayed e Take 2 Take 2 release tablets tablets Take 2 every day every day tablets by oral by oral every day route. route. by oral route. Vitamin D3 Vitamin D3 Yes Isaac [address] [facility] pravastatin pravastatin No 1 Q1D pravastati [facility] 20 mg 20 mg n 20 mg Family tablet Take tablet Take tablet Practic 1 tablet 1 tablet Take 1 e every day every day tablet by oral by oral every day route. route. by oral route. Advair Advair Yes Isaac not [facility] Diskus Diskus [facility] Pantoprazol Pantoprazol Yes Isaac [address] [facility] e Sodium e Sodium Johnson [facility] Trelegy Trelegy No 1puff(s Q1D Trelegy Luba jarrod Ellipta 100 Ellipta 100 ) Ellipta Family mcg-62.5 mcg-62.5 100 Practic mcg-25 mcg mcg-25 mcg mcg-62.5 e powder for powder for mcg-25 mcg inhalation inhalation powder for Inhale 1 Inhale 1 inhalation puff every puff every Inhale 1 day by day by puff every inhalation inhalation day by route. route. inhalation route. Lasix Lasix Yes Isaac [address] [facility] Levothyroxi Levothyroxi Yes Isaac [address] [facility] ne Sodium ne Sodium Johnson on an Meng es - empty Memoria stomach in l the Outpati morning ent Clinics Vitamin Vitamin Yes Isaac [address] B-12 B-12 Johnson [facility]ics Santyl Santyl Yes Isaac [address] [facility] Johnson applicatio [facility] - n to Memoria affected l area [facility] Fish Oil Fish Oil Yes Isaac [address] [facility] Metoprolol Metoprolol Yes Isaac [address] [address] Succinate Succinate Johnson Luke s - ER ER Memoria l [facility] Triamcinolo Triamcinolo Yes Isaac [address] [facility] ne ne Johnson applicatio [facility] - Acetonide Acetonide n to Memor ia affected l area [facility] Calcium Calcium Yes Isaac [address] [facility] Johnson with meals [facility] Vitamin C Vitamin C Yes Isaac [address] [facility] Biotin Biotin Yes Isaac not [facility] Johnson defined [facility] Pravastatin Pravastatin Yes Isaac [address] [facility] [address] Sodium Sodium Johnson [facility] Vitamin E Vitamin E Yes Isaac [address] [facility] Outpati ent Clinics Daliresp Daliresp Yes Isaac [address] [facility] Theophyllin Theophyllin Yes Isaac 0.[address] e ER e ER Johnson [facility] Pantoprazol Pantoprazol Yes Isaac [address] [facility] [facility] e Sodium e Sodium Johnson [facility] PredniSONE PredniSONE Yes Isaac [address] [facility] Maxidex Maxidex Yes Isaac 1 drop [facility] into [facility] - affected Memoria eye l Outpati ent Clinics Dorzolamide Dorzolamide Yes Isaac [address] [address] HCl HCl Johnson into Lukes - affected Memoria eye l Outpati ent Clinics Multivitami Multivitami Yes Isaac not [facility] n n Johnson defined [facility] - [facility]oria l Out[facility] ent Clinics Albuterol Albuterol Yes Isaac [address] [facility] Sulfate Sulfate Johnson needed [facility] - Memoria l Outpati ent Clinics Vital Signs Vital Name Observation Time Observation Value Comments Source Height 2019-08-09 00:00:00 69 [in_i] [facility] BMI (Body Mass 2019-08-09 00:00:00 34.7 kg/m2 [facility] Index) Practice Body Weight 2019-08-09 00:00:00 235 [lb_av] [facility] Procedures This patient has no known procedures. Plan of Care Planned Activity Planned Date Details Comments Source Instructions [facility] Encounters Start End Encounter Admission Attending Care Care Encounter Source Date/Time Date/Time Type Type Clinicians Facility Department ID 2019-09-16 2019-09-16 [facility] [id number] [facility] 11:07:00 11:07:00 [employer] [facility] Medicine Medicine Outpati ent Clinics 2019-09-09 2019-09-09 [facility] [id number] [address] 10:45:00 10:45:00 [employer] [facility] Medicine Outpati ent Clinics 2019-09-09 2019-09-09 [facility] [id number] 09:15:00 09:15:00 [employer] [facility] Medicine l Medicine Outpati ent Clinics 2019-08-09 2019-08-09 [facility] [place] - [id number] [facility] 00:00:00 00:00:00 [facility] 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 2019-04-29 2019-04-29 [facility] [id number] 13:12:00 13:12:00 [employer] [facility] 2019-04-04 2019-04-04 Outpatient Mariamsara Madhu [id number] 14:00:00 14:00:00 [facility] [employer] [facility] Clinics Results This patient has no known results.
--- OUTSIDE RECORDS SUMMARY | 2019-10-14 09:20 | XMS REPORT | Encounter Summary ---
:1945 Author Care Team Providers Name Role Phone Dr. Nilesh Galloway Primary Care Provider [facility] Frank Johnson Primary Care Provider [phone] Reason for Visit Tobacco Cessation Counseling; TELE home visit (initial) Instructions 1. Chronic obstructive lung dise ase albuterol sulfate 0.63 mg/ 3 mL solution for nebulization Trelegy Ellipta 100 mcg-62 .5 mcg-25 mcg powder for inhalation 2. Gastroesophageal reflux disea se without esophagitis pantoprazole 20 mg tablet, delayed release 3. Hypercholesterolemia pravastatin 20 mg tablet 4. Hypertensive disorder 5. Hypothyroidism 6. Malignant neoplasm of eye Cosopt 22.3 mg-6.8 mg/mL e ye drops moxifloxacin 0.5 % eye wisam ps 7. Nicotine dependence stopping smoking: care ins tructions advised to quit smoking deciding about using medic mary ann to quit smoking Discussion Note Completed a telephone visit with reg anton. Patient report he has enough meds currently and does not need any refills. Patient encouraged to wash hands frequently for 20 seconds, practice social distanci ng by stay home and maintaining physical space in public. Patient encouraged to s modoc medical care if he starts having continues cough, fever and sob. Patient verbalized understanding. Plan of Care Patient Instructions Today, I reviewed your medications. If you need help getting your medications filled, our [facility] can sync medication refills, deliver within a 10 mile radius, or [employer] [facility] overnight at no additional cost. Please watch for warning symptoms that m ay occur: fever redness/oozing at surgical site shortness of breath uncontrolled pain unexpected weight gain/loss high or low blood p ressure chest pain confusion any other health concerns Call us at if you experie nce any of these symptoms. Evening and Thursday clinic hours are av ailable if you have problems. If you have problems after hours, you ca n reach the [facility] physician munitions handler at . Quitting Tobacco Goals Quitting smokin g is important for your health, but it is hard to do. We agreed to the following goals towards reducing your tobacco habits: Today we talked about how you are . S ginette you want to smoke less, but are not ready to quit yet, we agreed that by your next appointment, you would . Since your ready to quit smoking, we agreed that you would smoke your last cigarette on . Residential Goals: *Permanently quit smoking *Improve lung function *Reduce my risk of getting emphysema, cancer and heart disease What can increase my chances of success for quitting smoking? *Regular exercise *Chew gum or hard can dy *Identify triggers that lead to smoking, and establish new strategies for coping with these situations *Keep yourself busy *Contact additional resources for munoz pport, such as [employer] *Don't give up, even if you have a setback How can my healthcare team support me i n quitting smoking? *Follow up visits to assess progress *I dentify resources available to help you quit smoking *Consider medication to increase your chances of successfully quitting smoking *Referral to counseling for additional support Reminders Provider Appointments None recorded. Lab None recorded. Referral None recorded. Procedures None recorded. Surgeries None recorded. Imaging None recorded. Medications Name Start Date albuterol sulfate 0.63 mg/3 mL solution for nebulizati on Inhale 1 mL every day by inhalation route. Cosopt 22.3 mg-6.8 mg/mL eye drops INSTILL 1 DROP INTO AFFECTED EYE(S) BY OPHTHALMIC ROU TE 2 TIMES PER DAY levothyroxine 125 mcg capsule Take 1 capsule every day by oral route. metoprolol succinate ER 50 mg capsule sprinkle, ext. r elease 24 hr Take 1 capsule every day by oral route. moxifloxacin 0.5 % eye drops INSTILL 1 DROP INTO AFFECTED EYE(S) BY OPHTHALMIC ROU TE 3 TIMES PER DAY pantoprazole 20 mg tablet,delayed release Take 2 tablets every day by oral route. pravastatin 20 mg tablet Take 1 tablet every day by oral route. Trelegy Ellipta 100 mcg-62.5 mcg-25 mcg powder for inh alation Inhale 1 puff every day by inhalation route. Medications Administered None recorded. Vitals Height Weight BMI 5 ft 9 in 235 lbs 34.7 kg/m2 Results Lab Results None recorded. Allergies Code Code System Name Reaction Severity Status Onset 3859126 RxNorm Latex Hives Mild to Active Moderate Penicillins Rash Moderate Active Problems Name Status Onset Date Source Malignant Neoplasm of Eye Active 08/09/2019 Hypothyroidism Active 08/09/2019 Hypercholesterolemia Active 08/09/2019 Hypertensive Disorder Active 08/09/2019 Chronic Obstructive Lung Disease Active 08/09/2019 Gastroesophageal Reflux Disease without Active 08/09/19 20 Esophagitis Procedures None recorded. Vaccine List None recorded. Social History Tobacco Smoking Status Light Tobacco Smoker (/ PPD) Past Encounters 08/09/2019 Chronic Obstructive Lung Disease; Gastro esophageal Reflux Disease without Esophagitis; Hypercholesterolemia; Hypertensive Disorder; Hypothyroidism; Malignant Neoplasm of Eye; Nicotine Dependence Lynn Barrera, YARD OPERATOR: [address] [facility], [address], [place] [address], Ph. History of Present Illness COPD Reported By: Patient HPI:: Quality: no cough, no shortn ess of breath. Severity: moderate. Onset/Timing: chronic, chron ic: has not changed Mini Cog Reported By: Patient Functional Ability: Personal/Social/ 3 word reca ll: Your nurse or doctor will ask you to remember 3 words. In 5 m inutes, they will ask you to repeat them. Patient recalled 3 w ords Tobacco Cessation Reported By: Patient HPI: Duration: 60 years. Timing: daily. Quality: 5 cigarettes/day. Context: during stress, tobacco in ho use/car/work. Associated Symptoms: no weight loss, no fever/chills/sweats , no fatigue, no hoarseness or change in voice, no throat pain, no pa in or difficulty swallowing, no cough, no hemoptysis, no septum or phl egm, no wheezing, no shortness of breath, no chest pain Note: Patient was evaluated today for the following chronic and acute conditions (see HPI below), as well as other concerns:
<p>1.
</p><p>2.

Patient utilizes the following resources:
</p><li>Home health care: {{Yes|No, doesnot need assistance with skilled needs|No, needs assistance with skilled needs*}} </li>
<li>Tool Room Lathe Operator: {{Yes|No, does not need assistance with ADLs*|No, needs assistance with ADLs}} </li>
<li>Durable Medical Equipment: {{Yes|No*|No, needs order for _}} </li>
How many times has the patient been admitted to the hospital in the last 12 months? {{0|1*|2+}}

How many times has the patient been seen in the emergency room in the last 12 months? {{0|1*|2+}}

Has patient been evaluated for Chronic Care M anagement? {{Yes – currently enrolled|Yes - has graduated from care management|Yes – declined program*|No – referred to program today}}

Does patient have needs or concerns in any of the following areas (Housing, Food, Transportation, Utilities, Personal Safety)? {{Yes – Social Work referral ordered|No*}}

Patient lives: {{In his/her own home or apartment*|In home or apartment of relative|Senior Apartment|Assisted Living Facility or Chcf|Penitentiary Facility}}

Does patient have difficulty taking his / her m edications as directed? {{Yes – Pharmacy Consult ordered|No*}}

I confirm that I received verbal consent from the patient for the virtual visit.
This telemedicine encounter was performed using live {{video and audio|audio only*}}.
<b>(for audio only)</b> Total time spent with patient: {{40#| }} minutes. Review of Systems Comprehensive General Adult ROS, Geriatric Annual Well Visit Reported By: Patient Eyes: Eyes: ; Patient report has l eft eye cancer, no vision lose Physical Exam General Adult Exam (male) Reported By: Patient Constitutional: Level of Distress: NAD"
--- OUTSIDE RECORDS SUMMARY | 2019-10-14 09:21 | XMS REPORT ---
:1945 Author Organization eClinicalWorks Care Team Providers Name Role Phone JohnsonIsaac Provider Role Unavailable Allergies No Known Allergies Problems Problem Type Condition Code Onset Dates Condition Statu s Problem Mixed hyperlipidemia E78.2 Active Problem Hypothyroid E03.9 Active Problem Low back pain M54.5 Active Problem Peripheral edema R60.9 Active Problem Other chronic pain G89.29 Active Problem Tobacco use disorder F17.200 Active Problem GERD without esophagitis K21.9 Act bibi Problem Essential hypertension I10 Activ e Problem Senile cataract of right eye, H25.9 Active unspecified age-related cataract type Problem COPD (chronic obstructive pulmonary J44.9 Active disease) Problem Osteoarthritis, generalized M15.9 Active Problem At high risk for falls Z91.81 Activ e Medications No Known Medications Results No Known Results Summary Purpose eClinicalWorks Submission
--- OUTSIDE RECORDS SUMMARY | 2019-10-14 09:21 | XMS REPORT ---
:1945 Author Organization eClinicalWorks Care Team Providers Name Role Phone Alex Isaac Provider Role Unavailable Allergies, Adverse Reactions, Alerts Substance Reaction Event Type Latex Info Not Available Drug Allergy penicillin Info Not Available Drug Allergy Problems Problem Type Condition Code Onset Dates Condition Statu s Problem Mixed hyperlipidemia E78.2 Active Problem Hypothyroid E03.9 Active Problem Low back pain M54.5 Active Problem Tobacco use disorder F17.200 Active Assessment Osteoarthritis, generalized M15.9 Active Problem GERD without esophagitis K21.9 Act bibi Assessment Tobacco use disorder F17.200 Active Problem Essential hypertension I10 Activ e Problem Senile cataract of right eye, H25.9 Active unspecified age-related cataract type Problem COPD (chronic obstructive pulmonary J44.9 Active disease) Problem Osteoarthritis, generalized M15.9 Active Problem At high risk for falls Z91.81 Activ e Assessment Hypothyroid E03.9 Active Assessment GERD without esophagitis K21.9 Act bibi Assessment At high risk for falls Z91.81 Activ e Assessment Peripheral edema R60.9 Active Assessment COPD (chronic obstructive pulmonary J44.9 Active disease) Assessment Mixed hyperlipidemia E78.2 Active Problem Peripheral edema R60.9 Active Assessment Essential hypertension I10 Activ e Problem Other chronic pain G89.29 Active Medications Medication Code Code Instructions Start End Status Dosage System Date Date Metoprolol [facility] 25464366306 50 MG Orally Active 1 ta blet Succinate ER Once a day Advair Diskus [facility] [address]-01 Active not defined Vitamin D3 [facility] 71931293831 5000 UNIT Active 1 capsu le Orally Once a day Biotin [facility] 83316-46632 Active not defined Vitamin B-12 [facility] 20904055398 1000 MCG/15ML Active 1 5 ml Orally Once a day Fish Oil ND 87878140552 1000 MG Orally Active 1 ca psule Once a day Pantoprazole ND 14597294390 20 MG Orally Active 1 tablet Sodium Once a day PredniSONE [facility] 90975637688 10 MG Orally Active 1 ta blet Once a day Pravastatin ND 96407565189 20 MG Orally Active 1 t ablet Sodium Once a day Levothyroxine ND 90403161658 125 MCG Orally Active 1 tablet on Sodium Once a day an empty stomach in the morning Theophylline ER ND 03930544133 300 MG Orally Active 0.5 tablet every 12 hrs Calcium ND 98885806317 600 MG Orally Active 1 tabl et with Twice a day meals Triamcinolone ND 59455280377 0.1 % Active 1 appl ication Acetonide Externally to affected Twice a day area Theophylline ER ND 98024719687 300 MG Orally Active 0.5 tablet every 12 hrs Maxidex ND 42200515983 0.1 % Active 1 drop into Ophthalmic affected eye Three times a day Dorzolamide HCl ND 64458276844 2 % Ophthalmic Activ e 1 drop into Three times a affected e ye day Lasix ND 25469228605 20 MG Orally Active 1 table t Once a day Daliresp ND 48801096646 500 MCG Orally Active 1 ta blet Once a day Multivitamin [facility] 75480-49410 Active not def ined Santyl [facility] 06870203116 250 UNIT/GM Active 1 applic ation Externally to affected Once a day area Vitamin E ND 19277100439 1000 UNIT Active 1 capsul e Orally Once a day Pantoprazole ND 66910114760 20 MG Orally Active 1 tablet Sodium Once a day Vitamin C [facility] 81551810813 1000 MG Orally Active 1 t ablet Once a day Albuterol [facility] 27629348821 (2.5 MG/3ML) Active 3 ml as Sulfate 0.083% needed Inhalation every 6 hrs Results No Known Results Summary Purpose eClinicalWorks Submission
--- OUTSIDE RECORDS SUMMARY | 2019-10-14 09:21 | XMS REPORT ---
:1945 Author Organization eClinicalWorks Care Team Providers Name Role Phone JohnsonIsaac Provider Role Unavailable Allergies, Adverse Reactions, Alerts Substance Reaction Event Type Latex Info Not Available Drug Allergy penicillin Info Not Available Drug Allergy Problems Problem Type Condition Code Onset Dates Condition Statu s Problem Mixed hyperlipidemia E78.2 Active Problem Hypothyroid E03.9 Active Problem Low back pain M54.5 Active Assessment Medicare annual wellness visit, Z00.00 Active subsequent Problem Peripheral edema R60.9 Active Problem Other [...] risk for falls Z91.81 Activ e Medications Medication Code Code Instructions Start End Status Dosage System Date Date Advair Diskus [facility] [address]-08 Active not defined Pravastatin [facility] 15146718237 20 MG Orally Active 1 t ablet Sodium Once a day Levothyroxine ND 26190884217 125 MCG Orally Active 1 tablet on Sodium Once a day an empty stomach in the morning Daliresp [facility] 65472657896 500 MCG Orally Active 1 ta blet Once a day Fish Oil ND 88678669410 1000 MG Orally Active 1 ca psule Once a day Vitamin B-12 ND 94637711754 1000 MCG/15ML Active 1 5 ml Orally Once a day Santyl [facility] 70725922198 250 UNIT/GM Active 1 applic ation Externally to affected Once a day area Dorzolamide HCl [facility] 63544169940 2 % Ophthalmic Activ e 1 drop into Three times a affected e ye day Metoprolol ND 87100587919 50 MG Orally Active 1 ta blet Succinate ER Once a day Biotin [facility] 88140-43599 Active not defined Theophylline ER ND 94639583981 300 MG Orally Active 0.5 tablet every 12 hrs Vitamin C [facility] 32328006460 1000 MG Orally Active 1 t ablet Once a day Theophylline ER ND 24862650048 300 MG Orally Active 0.5 tablet every 12 hrs Triamcinolone [facility] 27462964288 0.1 % Active 1 appl ication Acetonide Externally to affected Twice a day area Multivitamin [facility] 44131-75205 Active not def ined Albuterol [facility] 96202881863 (2.5 MG/3ML) Active 3 ml as Sulfate 0.083% needed Inhalation every 6 hrs Vitamin D3 [facility] 40771264201 5000 UNIT Active 1 capsu le Orally Once a day Lasix [facility] 40590581454 20 MG Orally Active 1 table t Once a day Maxidex [facility] 72461512641 0.1 % Active 1 drop into Ophthalmic affected eye Three times a day Pantoprazole [facility] 10049045299 20 MG Orally Active 1 tablet Sodium Once a day Vitamin E [facility] 57234417410 1000 UNIT Active 1 capsul e Orally Once a day Pantoprazole [facility] 15202024788 20 MG Orally Active 1 tablet Sodium Once a day Calcium [facility] 26376625486 600 MG Orally Active 1 tabl et with Twice a day meals PredniSONE [facility] 50072448119 10 MG Orally Active 1 ta blet Once a day Results No Known Results Summary Purpose eClinicalWorks Submission
[2019-10-14] MEDS ORDERED: TRAMADOL HCL 50 MG TAB ONE (10:37)
[2019-10-14] MEDS ORDERED: DOXYCYCLINE 100 MG CAP PO ONE (10:37)
--- NOTE | 2019-10-14 10:54 | EDPHYS ---
Physician Documentation [facility] Name: Timbo Medrano Age: 74 yrs Sex: Male : 1945 Arrival Date: 10/14/2019 Time: 09: Bed 6 Private MD: Alex [facility] ED Physician James Centeno HPI: 10/13 10:22 This 74 yrs old Male presents to ER via Ambulatory with complaints of Skin snw Problem, Leg Pain. 10:22 Onset: The symptoms/episode began/occurred gradually, 2 day(s) ago, and became snw persistent. Associated signs and symptoms: The patient has no apparent associated signs or symptoms. The patient has not experienced similar symptoms in the past. It is unknown whether or not the patient has recently seen a physician. hx of COPD. Historical: - Allergies: 09: Latex, Natural Rubber; ss 09:26 PENICILLINS; ss - PMHx: 09:26 COPD; Hypertension; Hypothyroidism; lymphedema; CA R eye; Cellulitis; ss - Immunization history:: Adult Immunizations up to date. - Social history:: Smoking status: Patient reports the use of cigarette tobacco products, smokes one pack cigarettes per day. ROS: 10:22 Constitutional: Negative for fever, chills, and weight loss, Eyes: Negative for injury, snw pain, redness, and discharge, ENT: Negative for injury, pain, and discharge, Neck: Negative for injury, pain, and swelling, Cardiovascular: Negative for chest pain, palpitations, and edema, Respiratory: Negative for shortness of breath, cough, wheezing, and pleuritic chest pain, Abdomen/GI: Negative for abdominal pain, nausea, vomiting, diarrhea, and constipation, Back: Negative for injury and pain, : Negative for injury, bleeding, discharge, and swelling, MS/Extremity: Negative for injury and deformity, Skin: Negative for injury, positive for discoloration, mild redness, pain to anterior lower right leg Neuro: Negative for headache, weakness, numbness, tingling, and seizure. Exam: 10:20 Constitutional: This is a well developed, well nourished patient who is awake, alert, snw and in no acute distress. Head/Face: Normocephalic, atraumatic. Eyes: Pupils equal round and reactive to light, extra-ocular motions intact. Lids and lashes normal. Conjunctiva and sclera are non-icteric and not injected. Cornea within normal limits. Periorbital areas with no swelling, redness, or edema. ENT: Nares patent. No nasal discharge, no septal abnormalities noted. Tympanic membranes are normal and external auditory canals are clear. Oropharynx with no redness, swelling, or masses, exudates, or evidence of obstruction, uvula midline. Mucous membranes moist. Neck: Trachea midline, no thyromegaly or masses palpated, and no cervical lymphadenopathy. Supple, full range of motion without nuchal rigidity, or vertebral point tenderness. No Meningismus. Chest/axilla: Normal chest wall appearance and motion. Nontender with no deformity. No lesions are appreciated. Cardiovascular: Regular rate and rhythm with a normal S1 and S2. No gallops, murmurs, or rubs. Normal PMI, no JVD. No pulse deficits. 10:20 Abdomen/GI: Soft, non-tender, with normal bowel sounds. No distension or tympany. No guarding or rebound. No evidence of tenderness throughout. Back: No spinal tenderness. No costovertebral tenderness. Full range of motion. Skin: Warm, dry with normal turgor. Normal color with no rashes, no lesions, and no evidence of cellulitis. Neuro: Awake and alert, GCS 15, oriented to person, place, time, and situation. Cranial nerves II-XII grossly intact. Motor strength 5/5 in all extremities. Sensory grossly intact. Cerebellar exam normal. Normal gait. Psych: Awake, alert, with orientation to person, place and time. Behavior, mood, and affect are within normal limits. 10:20 Respiratory: the patient does not display signs of respiratory distress, Respirations: pursed lip breathing, that is mild, Breath sounds: wheezing: expiratory 10:20 Musculoskeletal/extremity: Extremities: noted in the right love and anterior aspect of right ankle: ROM: intact in all extremities, Circulation is intact in all extremities. Sensation intact. Severe pain noted. Compartment Syndrome exam of affected extremity: is normal. Joints: All joints appear normal with full range of motion. DVT Exam: pain, swelling, tenderness, erythema, increased warmth, + venous chord to right lower leg. Vital Signs: 09:24 BP 122 / 73; Pulse 80; Resp 18; Temp 98.6(TE); Pulse Ox 96% on R/A; Weight 102.51 kg; ss Height 6 ft. 0 in. (182.88 cm); Pain 08/06; 09:24 Body Mass Index 30.65 (102.51 kg, 182.88 cm) ss MDM: 10:08 Patient medically screened. snw 10:58 Data reviewed: vital signs, nurses notes. Data interpreted: Pulse oximetry: on room air snw is 96 %. Interpretation: acceptable. Counseling: I had a detailed discussion with the patient and/or guardian regarding: the historical points, exam findings, and any diagnostic results supporting the discharge/admit diagnosis, radiology results, the need for outpatient follow up, to return to the emergency department if symptoms worsen or persist or if there are any questions or concerns that arise at home. Special discussion: Based on the history and exam findings, there is no indication for further emergent testing or inpatient evaluation. I discussed with the patient/guardian the need to see the primary care provider for further evaluation of the symptoms. 10/13 09:58 Order name: US Extremity Venous Unilateral Ltd snw Administered Medications: 10:34 Drug: Doxycycline 100 mg Route: PO; em 11:00 Follow up: Response: No adverse reaction em 10:34 Drug: UltRAM 25 mg Route: PO; em 11:00 Follow up: Response: No adverse reaction em Disposition: 13:02 Co-signature as Attending Physician, James Centeno MD I agree with the assessment and kdr plan of care. Disposition: 10/14/19 10:53 Discharged to Home. Impression: Cellulitis of right lower limb. - Condition is Stable. - Discharge Instructions: Cellulitis, Adult, Heat Therapy. - Prescriptions for Doxycycline Hyclate 100 mg Oral Tablet - take 1 tablet by ORAL route every 12 hours; 20 tablet. Ultram 50 mg Oral Tablet - take 1 tablet by ORAL route every 6 hours As needed; 12 tablet. - Medication Reconciliation Form, Thank You Letter, Antibiotic Education, Prescription Opioid Use form. - Follow up: Isaac Johnson DO; When: 2 - 3 days; Reason: Recheck today's complaints, Continuance of care, Re-evaluation by your physician. Follow up: Emergency Department; When: As needed; Reason: Worsening of condition. Signatures: Dispatcher [employer] EDME James Centeno MD MD kdr Waters, Shelly, BREAKER ENGINEER-C BREAKER ENGINEER-Csnw Andrew Betts, RN RN em Terri Preston RN RN ss Corrections: (The following items were deleted from the chart) 11:04 10:53 10/14/2019 10:53 Discharged to Home. Impression: Cellulitis of right lower limb. em Condition is Stable. Forms are Medication Reconciliation Form, Thank You Letter, Antibiotic Education, Prescription Opioid Use. Follow up: Isaac Johnson; When: 2 - 3 days; Reason: Recheck today's complaints, Continuance of care, Re-evaluation by your physician. Follow up: Emergency Department; When: As needed; Reason: Worsening of condition. snw 11:11 11:04 10/14/2019 10:53 Discharged to Home. Impression: Cellulitis of right lower limb. em Condition is Stable. Discharge Instructions: Cellulitis, Adult, Heat Therapy. Prescriptions for Doxycycline Hyclate 100 mg Oral Tablet - take 1 tablet by ORAL route every 12 hours; 20 tablet. and Forms are Medication Reconciliation Form, Thank You Letter, Antibiotic Education, Prescription Opioid Use. Follow up: Isaac Johnson; When: 2 - 3 days; Reason: Recheck today's complaints, Continuance of care, Re-evaluation by your physician. Follow up: Emergency Department; When: As needed; Reason: Worsening of condition. em
--- NOTE | 2019-10-14 10:54 | ER ---
Nurse's Notes [facility] Name: Timbo Medrano Age: 74 yrs Sex: Male : 1945 Arrival Date: 10/14/2019 Time: : Bed 6 Private MD: Isaac Johnson Diagnosis: Cellulitis of right lower limb Presentation: 10/13 09:24 Chief complaint: Patient states: redness and swelling to R lower leg that began 2 days ss ago. Denies fever. Coronavirus screen: Patient denies a cough. Patient denies shortness of breath or difficulty breathing. Patient denies measured and/or subjective temperature greater than 100.4F prior to today's visit. Patient denies travel on a cruise ship or to a country the [facility] currently lists as an affected area. Patient denies contact with known and/or suspected case of COVID-19. Proceed with normal triage. Ebola Screen: Patient denies exposure to infectious person. Patient denies travel to an Ebola-affected area in the 21 days before illness onset. Initial Sepsis Screen: Does the patient have a suspected source of infection? Yes: Skin breakdown/wound. Initial Sepsis Screen: Does the patient meet any 2 criteria? No. Patient's initial sepsis screen is negative. Risk Assessment: Do you want to hurt yourself or someone else? Patient reports no desire to harm self or others. Onset of symptoms was October 12, 2019. 09:24 Method Of Arrival: Ambulatory 09:24 Acuity: JULIO 3 ss Historical: - Allergies: 09:26 Latex, Natural Rubber; ss 09:26 PENICILLINS; ss - PMHx: 09:26 COPD; Hypertension; Hypothyroidism; lymphedema; CA R eye; Cellulitis; ss - Immunization history:: Adult Immunizations up to date. - Social history:: Smoking status: Patient reports the use of cigarette tobacco products, smokes one pack cigarettes per day. Screenin:26 Abuse screen: Denies threats or abuse. Abuse screen: Denies threats or abuse. em Nutritional screening: No deficits noted. Tuberculosis screening: No symptoms or risk factors identified. Fall Risk None identified. Assessment: 10:25 General: Appears in no apparent distress. comfortable, Behavior is calm, cooperative, em appropriate for age, Denies fever. Pain: Complains of pain in right love Pain currently is 5 out of 10 on a pain scale. Pain began 2-3 days ago. Neuro: Level of Consciousness is awake, alert, obeys commands, Oriented to person, place, time, situation, Appropriate for age. Cardiovascular: Capillary refill < 3 seconds Patient's skin is warm and dry. Respiratory: Airway is patent Respiratory effort is even, unlabored, Respiratory pattern is regular, symmetrical. GI: Abdomen is round non-distended. Derm: Skin is intact, is healthy with good turgor, Skin is pink, warm \T\ dry. Musculoskeletal: Capillary refill < 3 seconds, Range of motion: intact in all extremities. Vital Signs: 09:24 BP 122 / 73; Pulse 80; Resp 18; Temp 98.6(TE); Pulse Ox 96% on R/A; Weight 102.51 kg; ss Height 6 ft. 0 in. (182.88 cm); Pain 5/10; 09:24 Body Mass Index 30.65 (102.51 kg, 182.88 cm) ED Course: 09:17 Patient arrived in ED. dp 09:17 Isaac Johnson DO is Private Physician. dp 09:26 Triage completed. ss 09:26 Arm band placed on right wrist. ss 09:37 Shruthi Otero FNP-C is PHCP. snw 09:37 James Centeno MD is Attending Physician. snw 10:15 Andrew Betts, RN is Primary Nurse. em 10:26 Patient has correct armband on for positive identification. Bed in low position. Call em light in reach. 10:42 Extremity Venous Unilateral Ltd In Process Unspecified. EDMS 10:53 Isaac Johnson DO is Referral Physician. snw 11:03 No provider procedures requiring assistance completed. Patient did not have IV access em during this emergency room visit. 11:09 Primary Nurse role handed off by Andrew Betts, RN ss 11:11 Andrew Betts, EMILY is Primary Nurse. em Administered Medications: 10:34 Drug: Doxycycline 100 mg Route: PO; em 11:00 Follow up: Response: No adverse reaction em 10:34 Drug: UltRAM 25 mg Route: PO; em 11:00 Follow up: Response: No adverse reaction em Outcome: 10:53 Discharge ordered by . snw 11:03 Discharged to home ambulatory. em 11:03 Condition: good 11:03 Discharge instructions given to patient, Instructed on discharge instructions, follow up and referral plans. medication usage, Demonstrated understanding of instructions, follow-up care, medications, Prescriptions given X 1. 11:04 Patient left the ED. em 11:11 Patient left the ED. em Signatures: Dispatcher [employer] EDMS Shruthi Otero, BYRON-C DIRECTOR LEARNING-Csnw Andrew Betts RN RN em Smirch, Shelby, RN RN Isaac Jones
[2019-10-14 11:14] VITALS: BP 122/73; TEMP 98.6; O2SAT 96
--- NOTE | 2019-10-14 11:33 | RAD REPORT ---
EXAM DESCRIPTION: US - Extremity Venous Uni Ltd - 10/14/2019 10:42 am CLINICAL HISTORY: Pain;Swelling COMPARISON: None. TECHNIQUE: Real-time sonographic evaluation of the right lower extremity deep venous systems was per formed. FINDINGS: Normal compressibility, flow augmentation, phasic flow and spontaneous flow are identified in the right lower extremity common femoral, superficial femoral, popliteal and posterior tibial vei ns. No intraluminal filling defects seen. IMPRESSION: No DVT in the right lower extremity.
== END 2019-10-14 11:11 | disposition home or self-care (01) ==
LOC: ER 09:15
DX: L03.115 Cellulitis of right lower limb (principal); I10 Essential (primary) hypertension; F17.210 Nicotine dependence, cigarettes, uncomplicated; J44.9 Chronic obstructive pulmonary disease, unspecified; Z88.0 Allergy status to penicillin; Z91.040 Latex allergy status; Z91.048 Other nonmedicinal substance allergy status
CPT/HCPCS: 93971; 99283

== ENCOUNTER 2021-10-07 08:21 | Emergency (ER) | payer OTHER ==
[2021-10-07 09:41] LABS: Absolute Lymphocytes (CBC) 1.5 K/uL (0.7-4.9); Hematocrit 39.5 % (39.6-49.0); Lymphocytes % 19.7 % (15.3-44.8); RBC Red Blood Cell Count 4.29 M/uL (4.33-5.43)
[2021-10-07 09:53] LABS: Potassium 4.6 mmol/L (3.5-5.1)
--- NOTE | 2021-10-07 10:21 | ER ---
Nurse's Notes [facility] Name: Timbo Medrano Age: 76 yrs Sex: Male : 1945 Arrival Date: 10/07/2021 Time: 08:23 Bed 15 Private MD: Isaac Johnson Diagnosis: Cellulitis of the Right Upper Extremity Presentation: 10/07 08:34 Chief complaint: Patient states: he was working in the yard September when ap3 he got bit by something on his right hand. Patient believes it to have been a snake. patient followed up with his PCP Thursday morning due to redness and swelling in his right arm. Patient presents to the ED today for reevaluation due to continued swelling and redness with itching of the right arm. Coronavirus screen: At this time, the client does not indicate any symptoms associated with coronavirus-19. Ebola Screen: No symptoms or risks identified at this time. Initial Sepsis Screen: Does the patient meet any 2 criteria? No. Patient's initial sepsis screen is negative. Does the patient have a suspected source of infection? No. Patient's initial sepsis screen is negative. Risk Assessment: Do you want to hurt yourself or someone else? Patient reports no desire to harm self or others. Onset of symptoms was October 03, 2021. 08:34 Method Of Arrival: Ambulatory ap3 08:34 Acuity: JULIO 4 ap3 Triage Assessment: 08:39 Bite description: bite sustained to Right first web space by an unknown animal, animal ap3 information: vaccination(s) is unknown. General: Appears in no apparent distress. Behavior is calm, cooperative. Pain: Denies pain. Neuro: Level of Consciousness is awake, alert, obeys commands, Oriented to person, place, time, situation. Cardiovascular: Patient's skin is warm and dry. Respiratory: Airway is patent Respiratory effort is even, unlabored, Respiratory pattern is regular, symmetrical. Historical: - Allergies: 08:37 Latex, Natural Rubber; ap3 08:37 PENICILLINS; ap3 - PMHx: 08:37 CA R eye; Cellulitis; lymphedema; COPD; Hypothyroidism; ap3 - Immunization history:: Client reports receiving the 2nd dose of the Covid vaccine. - Social history:: Smoking status: Patient/guardian denies using tobacco. Screenin:39 Abuse screen: Denies threats or abuse. Nutritional screening: No deficits noted. ap3 Tuberculosis screening: No symptoms or risk factors identified. 10:21 Fall Risk None identified. jg9 Assessment: 10:19 Reassessment: No changes from previously documented assessment. Patient and/or family jg9 updated on plan of care and expected duration. Pain level reassessed. Patient is alert, oriented x 3, equal unlabored respirations, skin warm/dry/pink. Derm: Skin red swollen Skin is red. Vital Signs: 08:34 BP 130 / 80; Pulse 59; Resp 17; Temp 98.3; Pulse Ox 100% ; Weight 120.2 kg; Height 6 ap3 ft. (182.88 cm); Pain 0/10; 09:00 BP 127 / 74; Pulse 56; Resp 21 S; Pulse Ox 97% ; jg9 09:30 BP 152 / 87; Pulse 61; Resp 20 S; Pulse Ox 97% ; jg9 10:00 BP 133 / 90; Pulse 60; Resp 20 S; Pulse Ox 95% on R/A; jg9 08:34 Body Mass Index 35.94 (120.20 kg, 182.88 cm) ap3 ED Course: 08:00 Patient has correct armband on for positive identification. Bed in low position. Call jg9 light in reach. Side rails up X 1. 08:23 Patient arrived in ED. rg4 08:24 Isaac Johnson DO is Private Physician. rg4 08:25 [facility] 08:25 Warren Segura MD is Attending Physician. jmm 08:30 Inserted saline lock: 22 gauge in left antecubital area, using aseptic technique. Blood jg9 collected. 08:37 Triage completed. ap3 08:39 Arm band placed on left wrist. ap3 10:17 Amy Patton, EMILY is Primary Nurse. jg9 10:21 No provider procedures requiring assistance completed. jg9 10:22 IV discontinued. jg9 Administered Medications: No medications were administered Medication: 10:21 VIS not applicable for this client. jg9 Outcome: 10:20 Discharge ordered by . jmm 10:21 Condition: stable jg9 10:35 Discharged to home ambulatory. jg9 10:35 Discharge instructions given to patient, Instructed on discharge instructions, follow up and referral plans. Demonstrated understanding of instructions, follow-up care, Prescriptions given X 1. 10:35 Patient left the ED. jg9 Signatures: Jak Becker PA PA jmm Garcia, Rubi rg4 Anna Hicks RN RN ap3 Amy Patton RN RN jg9 Corrections: (The following items were deleted from the chart) 08:38 08:37 PMHx: Hypertension; ap3 ap3
--- NOTE | 2021-10-07 10:21 | EDPHYS ---
Physician Documentation [facility] Name: Timbo Medrano Age: 76 yrs Sex: Male : 1945 Arrival Date: 10/07/2021 Time: 08:23 Bed 15 Private MD: Isaac Johnson ED Physician Warren Segura HPI: 10/07 08:46 This 76 yrs old Male presents to ER via Ambulatory with complaints of Arm Pain, Insect jmm Bite. 08:46 The patient or guardian complains of injury, pain, swelling. The complaints affect the jmm right antecubital area and right wrist. Onset: The symptoms/episode began/occurred acutely, 4 day(s) ago. This is a 76 year old male with a history of copd, hypothyroidism that presents to the ED with complaints of right arm redness and swelling. Patient states he was bitten by something while trimming bushes this past . Patient was seen by pcp yesterday and prescribed bactrim and doxycycline. Advised to go to the ED if symptoms worsened. Patient denies fever. . Historical: - Allergies: 08:37 Latex, Natural Rubber; ap3 08:37 PENICILLINS; ap3 - PMHx: 08:37 CA R eye; Cellulitis; lymphedema; COPD; Hypothyroidism; ap3 - Immunization history:: Client reports receiving the 2nd dose of the Covid vaccine. - Social history:: Smoking status: Patient/guardian denies using tobacco. ROS: 08:46 Constitutional: Negative for fever, chills, and weight loss, Cardiovascular: Negative jmm for chest pain, palpitations, and edema, Respiratory: Negative for shortness of breath, cough, wheezing, and pleuritic chest pain. 08:46 Skin: Positive for erythema, rash, swelling. 08:46 All other systems are negative. Exam: 08:46 Constitutional: This is a well developed, well nourished patient who is awake, alert, jmm and in no acute distress. Head/Face: atraumatic. Eyes: EOMI, no conjunctival erythema appreciated ENT: Moist Mucus Membranes Neck: Trachea midline, Supple Chest/axilla: Normal chest wall appearance and motion. Cardiovascular: Regular rate and rhythm. 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 08:46 Skin: erythema noted to the right upper arm. 08:46 Neuro: Orientation: is normal, Mentation: is normal, Memory: is normal. 08:46 Psych: Behavior/mood is pleasant, cooperative. Vital Signs: 08:34 BP 130 / 80; Pulse 59; Resp 17; Temp 98.3; Pulse Ox 100% ; Weight 120.2 kg; Height 6 ap3 ft. (182.88 cm); Pain 0/10; 09:00 BP 127 / 74; Pulse 56; Resp 21 S; Pulse Ox 97% ; jg9 09:30 BP 152 / 87; Pulse 61; Resp 20 S; Pulse Ox 97% ; jg9 10:00 BP 133 / 90; Pulse 60; Resp 20 S; Pulse Ox 95% on R/A; jg9 08:34 Body Mass Index 35.94 (120.20 kg, 182.88 cm) ap3 MDM: 08:[address] [facility] 10:19 Data reviewed: vital signs, nurses notes. Counseling: I had a detailed discussion with bharat the patient and/or guardian regarding: the historical points, exam findings, and any diagnostic results supporting the discharge/admit diagnosis, lab results, the need for outpatient follow up, to return to the emergency department if symptoms worsen or persist or if there are any questions or concerns that arise at home. ED course: Patient is alert and non toxic in apperance in the ED. Right arm is NVI. Patient advised to continue oral abx. Patient otherwise given strict return precautions. patient understood and agrees with the plan of care. . 10/07 08:52 Order name: CBC with Diff; Complete Time: 09:42 [facility] 10/07 08:52 Order name: BMP; Complete Time: 09:56 [facility] 10/07 08:52 Order name: Lactate; Complete Time: 10:14 [facility] 10/07 08:52 Order name: Blood Culture Adult (2) [facility] 10/07 08:52 Order name: Saline Lock; Complete Time: 10:17 [facility] Administered Medications: No medications were administered Disposition: 18:22 Co-signature as Attending Physician, Warren Segura MD. rn Disposition Summary: 10/07/21 10:20 Discharge Ordered Location: Home [facility] Condition: Stable jm Diagnosis - Cellulitis of the Right Upper Extremity [facility] Followup: jmm - With: Private Physician - When: 1 - 2 days - Reason: Recheck today's complaints, Continuance of care, Re-evaluation by your physician Discharge Instructions: - Discharge Summary Sheet jmm - Cellulitis, Adult jmm Forms: - Medication Reconciliation Form [facility] - Thank You Letter [facility] - Antibiotic Education [facility] - Prescription Opioid Use [facility] Prescriptions: - Hydroxyzine HCl 25 mg Oral Tablet - take 1 tablet by ORAL route every 6 hours As needed; 12 tablet; Refills: 0, jmm Product Selection Permitted Signatures: Dispatcher [employer] EDJak Goddard PA PA m Warren Segura MD MD rn Anna Hicks RN RN ap3 Corrections: (The following items were deleted from the chart) 08:38 08:37 PMHx: Hypertension; ap3 ap3
[2021-10-07 10:42] VITALS: TEMP 98.3
[2021-10-07 10:52] VITALS: BP 133/90; O2SAT 95
== END 2021-10-07 10:35 | disposition home or self-care (01) ==
LOC: ER 08:21
DX: L03.113 Cellulitis of right upper limb (principal); J44.9 Chronic obstructive pulmonary disease, unspecified; E03.9 Hypothyroidism, unspecified; Z88.0 Allergy status to penicillin; Z91.040 Latex allergy status; Z91.048 Other nonmedicinal substance allergy status
CPT/HCPCS: 36415; 80048; 83605; 85025; 87040; 99283

== ENCOUNTER → 2023-05-22 | Emergency (ER) | payer OTHER ==
[~2023-05-22] MED LIST: CYCLOBENZAPRINE 10 MG TAB ONE; GABAPENTIN 300 MG CAP ONE; TRAMADOL HCL 50 MG TAB ONE
--- NOTE | 2023-05-22 13:32 | RAD REPORT ---
EXAM DESCRIPTION: Cat Single View05/22/2023 1:06 pm CLINICAL HISTORY: neck pain COMPARISON: Chest Single View dated 07/05/2022; Chest Single View dated 06/29/2022; Chest Pa And Lat (2 Views) dated 03/21/2021; Chest Pa And Lat (2 Views) dated 03/29/2019; Head C Spine Cap W Con dated ; Ribs Right dated 10/09/2022 TECHNIQUE: Portable AP view of the chest. FINDINGS: The lungs are clear. Stable prominence of the epicardial fat, as well as the right periphe ral subpleural fat, underlying multiple right rib deformities. No pneumothorax or effusion. The card iomediastinal contours are unremarkable. IMPRESSION: No acute cardiopulmonary process. Stable findings as above.
[2023-05-22 13:59] LABS: Absolute Lymphocytes (CBC) 1.3 K/uL (0.7-4.9); Hematocrit 40.3 % (39.6-49.0); Lymphocytes % 15.1 % (15.3-44.8); MCV 90.9 fL (80-100); MPV 8.1 fL (7.6-11.3); Platelets 169 thou/uL (152-406); RBC Red Blood Cell Count 4.44 M/uL (4.33-5.43)
[2023-05-22 14:14] LABS: Protime INR 1.17
[2023-05-22 14:26] LABS: Potassium 4.3 mEq/L (3.5-5.1); Troponin High Sensitivity 7.6 pg/mL (<58.9)
--- NOTE | 2023-05-22 15:40 | RAD REPORT ---
EXAM DESCRIPTION: CT - Soft Tissue Neck W/Contr CLINICAL HISTORY: left posterior/lateral pain, subjective swelling COMPARISON: SOFT TISSUE NECK W CONTRAST dated 04/02/2011 TECHNIQUE: Thin axial CT images of the neck, performed following intravenous administration of 100 mL Isovue-300. Multiplanar reformats were generated and reviewed. All CT scans are performed using dose optimization technique as appropriate and may include automated exposure control or mA/KV adjustment according to patient size. FINDINGS: Nasopharyngeal tissues are normal in appearance. Fossa Rosenmller are normal. Parapharyngeal fat triangles are symmetric. Tongue base structures are normal. Epiglottis and aryepiglottic folds are normal. Piriform sinuses are well aerated. The vocal cords are normal in appearance. No suspicious adenopathy. Salivary glands are normal in appearance. Tortuosity of the internal carotid arteries with medial extension in the retropharyngeal space on bot h sides. No hemodynamically significant stenosis. Upper lung soto are clear. Included intracranial contents are unremarkable. IMPRESSION: No acute abnormality. No suspicious mucosal mass or adenopathy.
--- NOTE | 2023-05-22 15:46 | ER ---
Nurse's Notes [facility] Name: Timbo Medrano Age: 78 yrs Sex: Male : 1945 Arrival Date: 05/22/2023 Time: 12:11 Bed 20 Private MD: Isaac Johnson Diagnosis: Strain of muscle, fascia and tendon at neck level, initial encounter;Spasmodic torticollis Presentation: 05/22 12:49 Chief complaint: Patient states: Neck pain since Thursday. No trauma or falls. ll1 Coronavirus screen: Client denies travel out of the [place] in the last 14 days. At this time, the client does not indicate any symptoms associated with coronavirus-19. Ebola Screen: Patient denies travel to an Ebola-affected area in the 21 days before illness onset. Acute neurological deficit: none identified. Initial Sepsis Screen: Does the patient meet any 2 criteria? No. Patient's initial sepsis screen is negative. Does the patient have a suspected source of infection? No. Patient's initial sepsis screen is negative. Risk Assessment: Do you want to hurt yourself or someone else? Patient reports no desire to harm self or others. Onset of symptoms was May 19, 2023. 12:49 Method Of Arrival: Wheelchair ll1 12:49 Acuity: JULIO 3 ll1 Triage Assessment: 12:51 General: Appears uncomfortable, Behavior is calm, cooperative, appropriate for age. ll1 Pain: Complains of pain in neck Quality of pain is described as aching. Musculoskeletal: Reports pain in neck. Historical: - Allergies: 12:15 Amoxicillin; ll1 12:15 Latex; ll1 12:15 PENICILLINS; ll1 - PMHx: 12:15 CA R eye; Cellulitis; Hypothyroidism; COPD; lymphedema; ll1 - Immunization history:: Adult Immunizations up to date. - Social history:: Smoking status: Patient/guardian denies using tobacco, the patient reports quitting approximately 2 years ago. - Family history:: not pertinent. - Hospitalizations: : No recent hospitalization is reported. Screenin:55 [facility] ED Fall Risk Assessment (Adult) History of falling in the last 3 months, mb9 including since admission No falls in past 3 months (0 pts) Confusion or Disorientation No (0 pts) Intoxicated or Sedated No (0 pts) Impaired Gait No (0 pts) Mobility Assist Device Used No (0 pt) Altered Elimination No (0 pt) Score/Fall Risk Level 0 - 2 = Low Risk Oriented to surroundings, Maintained a safe environment, Educated pt \T\ family on fall prevention, incl call for assistance when getting out of bed. Abuse screen: Denies threats or abuse. Nutritional screening: No deficits noted. Tuberculosis screening: No symptoms or risk factors identified. Assessment: 13:26 Reassessment: No changes from previously documented assessment. Patient and/or family ll1 updated on plan of care and expected duration. Pain level reassessed. Patient is alert, oriented x 3, equal unlabored respirations, skin warm/dry/pink. 13:34 Reassessment: PT BROUGHT BACK TO ER ROOM. mb9 13:56 General: Appears in no apparent distress. Behavior is calm, cooperative. Pain: mb9 Complains of pain in neck Pain does not radiate. Pain currently is 8 out of 10 on a pain scale. Quality of pain is described as throbbing, Pain began 2-3 days ago. Is continuous. Neuro: Persaud Agitation-Sedation Scale (RASS): 0 - Alert and Calm Level of Consciousness is awake, alert, obeys commands, Oriented to person, place, time, situation, Appropriate for age. Cardiovascular: Patient's skin is warm and dry. Respiratory: Airway is patent Respiratory effort is even, unlabored, Respiratory pattern is regular, symmetrical. GI: No signs and/or symptoms were reported involving the gastrointestinal system. : No signs and/or symptoms were reported regarding the genitourinary system. EENT: No signs and/or symptoms were reported regarding the EENT system. Derm: Skin is pink, warm \T\ dry. Musculoskeletal: Range of motion: intact in all extremities. 14:57 Reassessment: No changes from previously documented assessment. Patient and/or family mb9 updated on plan of care and expected duration. Pain level reassessed. Patient is alert, oriented x 3, equal unlabored respirations, skin warm/dry/pink. Vital Signs: 12:49 BP 127 / 84; Pulse 76; Resp 18; Temp 97.8; Pulse Ox 94% ; Weight 117.93 kg; Height 5 ll1 ft. 9 in. ; Pain 10/10; 13:55 BP 137 / 89; Pulse 78; Resp 18; Pulse Ox 100% on R/A; mb9 14:57 BP 138 / 84; Pulse 85; Resp 20; Pulse Ox 96% on R/A; mb9 12:49 Body Mass Index 38.39 (117.93 kg, 175.26 cm) ll1 12:49 Pain Scale: Adult ll1 ED Course: 12:13 Patient arrived in ED. rg4 12:13 Isaac Johnson DO is Private Physician. rg4 12:15 Arm band placed on. ll1 12:24 Warren Segura MD is Attending Physician. rn 12:51 Triage completed. ll1 13:04 Radiology exam delayed due to IV insertion attempt and/or patient not having nj appropriate IV at this time. 13:04 Radiology exam delayed due to lab results not completed at this time. (BUN/Creatinine). nj 13:08 XRAY Chest (1 view) In Process Unspecified. EDMS 13:26 Patient placed in the treatment room, in a wheelchair. ll1 13:34 Dominique Gillette RN is Primary Nurse. mb9 13:54 Basic Metabolic Panel Sent. mb9 13:54 CBC with Diff Sent. mb9 13:54 NT PRO-BNP Sent. mb9 13:54 PT-INR Sent. mb9 13:54 Troponin HS Sent. mb9 13:54 No provider procedures requiring assistance completed. Inserted saline lock: 22 gauge mb9 in right forearm, using aseptic technique. 13:55 Placed in gown. Bed in low position. Call light in reach. Side rails up X 1. Client mb9 placed on continuous cardiac and pulse oximetry monitoring. NIBP monitoring applied. general warehouse associate on. 13:55 EKG done, by ED staff, reviewed by Warren Segura MD. mb9 13:56 Radiology exam delayed due to lab results not completed at this time. (BUN/Creatinine). ls3 14:50 Soft Tissue Neck W/Contr CT In Process Unspecified. EDMS 15:55 IV discontinued, intact, bleeding controlled, No redness/swelling at site. Pressure mb9 dressing applied. Administered Medications: 13:40 Drug: Cyclobenzaprine PO 10 mg PO once Route: PO; mb9 15:44 Follow up: Response: No adverse reaction mb9 13:42 Drug: Gabapentin PO 300 mg PO once Route: PO; mb9 15:44 Follow up: Response: No adverse reaction mb9 15:47 Drug: traMADol PO 50 mg PO once Route: PO; mb9 15:54 Follow up: Response: No adverse reaction mb9 Medication: 13:55 VIS not applicable for this client. mb9 Outcome: 15:45 Discharge ordered by . rn 15:55 Discharged to home via wheelchair, with family, mb9 15:55 Condition: stable 15:55 Discharge instructions given to patient, Instructed on discharge instructions, follow up and referral plans. Demonstrated understanding of instructions, follow-up care, medications, Prescriptions given X 1, 15:55 Patient left the ED. mb9 Signatures: Dispatcher [employer] EDMS Warren Segura MD MD rn Garcia, Hannah [email or web address] Bhargav Ludwig Lynzie ls3 Solo Williamson RN RN ll1 Dominique Gillette RN RN mb9
--- NOTE | 2023-05-22 15:46 | EDPHYS ---
Physician Documentation [facility] Name: Timbo Medrano Age: 78 yrs Sex: Male : 1945 Arrival Date: 05/22/2023 Time: 12:11 Bed 20 Private MD: [facility] ED Physician Warren Segura HPI: 05/22 15:03 This 78 yrs old Male presents to ER via Wheelchair with complaints of Neck Pain, <24hrs rn Old. 15:03 The patient or guardian complains of pain. The symptoms are located on the Left lateral rn neck. 15:04 Onset: The symptoms/episode began/occurred 3 day(s) ago. Context: The problem was rn sustained at home, The neck injury/problem resulted from from unknown cause. Associated signs and symptoms: Pertinent negatives: fever, headache, bladder incontinence, bowel incontinence, nausea, numbness, tingling, vomiting, weakness. The pain does not radiate. Modifying factors: The symptoms are alleviated by nothing. the symptoms are aggravated by movement. Severity of symptoms: At their worst the symptoms were moderate, in the emergency department the symptoms are unchanged. The patient has experienced a previous episode. Patient reports left lateral neck pain. Began a few days ago. No trauma. No injury. Denies radiation. Has had it once before with muscle spasm of the neck at this time lasting longer. Pain with range of motion of the neck. No chest pain or shortness of breath. No trouble swallowing. Does have subjective swelling of the neck. No rash or signs of allergic reaction. No new medication.. Historical: - Allergies: 12:15 Amoxicillin; ll1 12:15 Latex; ll1 12:15 PENICILLINS; ll1 - PMHx: 12:15 CA R eye; Cellulitis; Hypothyroidism; COPD; lymphedema; ll1 - Immunization history:: Adult Immunizations up to date. - Social history:: Smoking status: Patient/guardian denies using tobacco, the patient reports quitting approximately 2 years ago. - Family history:: not pertinent. - Hospitalizations: : No recent hospitalization is reported. ROS: 15:04 Constitutional: Negative for fever, chills, and weight loss, Neck: Positive for neck rn pain and subjective swelling Cardiovascular: Negative for chest pain, palpitations, and edema, Respiratory: Negative for shortness of breath, cough, wheezing, and pleuritic chest pain, Abdomen/GI: Negative for abdominal pain, nausea, vomiting, diarrhea, and constipation, MS/Extremity: Negative for injury and deformity, Skin: Negative for injury, rash, and discoloration, Neuro: Negative for headache, weakness, numbness, tingling, and seizure, Exam: 15:04 Constitutional: Overweight male, and wheelchair, no acute distress. Using body to rn turn to the left side instead of isolated neck or head Head/Face: Normocephalic, atraumatic. Neck: Trachea midline, no masses palpated, and no cervical lymphadenopathy. No Meningismus. Pain with rotation to the left, uses body to turn and shoulders instead of head or neck Cardiovascular: Regular rate and rhythm. No pulse deficits. Respiratory: No increased work of breathing, no retractions or nasal flaring. Abdomen/GI: Soft, non-tender Neuro: Awake and alert, GCS 15, oriented to person, place, time, and situation. Cranial nerves II-XII grossly intact. Motor strength 5/5 in all extremities. Sensory grossly intact. Vital Signs: 12:49 BP 127 / 84; Pulse 76; Resp 18; Temp 97.8; Pulse Ox 94% ; Weight 117.93 kg; Height 5 ll1 ft. 9 in. ; Pain 10/10; 13:55 BP 137 / 89; Pulse 78; Resp 18; Pulse Ox 100% on R/A; mb9 14:57 BP 138 / 84; Pulse 85; Resp 20; Pulse Ox 96% on R/A; mb9 12:49 Body Mass Index 38.39 (117.93 kg, 175.26 cm) ll1 12:49 Pain Scale: Adult ll1 MDM: 12:24 Patient medically screened. rn 15:44 Differential diagnosis: arthritis, Cervical Discogenic Pain cervical strain, rn torticollis. Data reviewed: vital signs, nurses notes, lab test result(s), radiologic studies, and as a result, I will discharge patient. 15:44 Care significantly affected by the following chronic conditions: Chronic Obstructive rn Pulmonary Disease. Counseling: I had a detailed discussion with the patient and/or guardian regarding the historical points, exam findings, and any diagnostic results supporting the discharge/admit diagnosis, lab results, radiology results, the need for outpatient follow up, to return to the emergency department if symptoms worsen or persist or if there are any questions or concerns that arise at home. Special discussion: I discussed with the patient/guardian in detail that at this point there is no indication for admission to the hospital. It is understood, however, that if the symptoms persist or worsen the patient needs to return immediately for re-evaluation. ED course: No acute findings on CT neck. Labs unremarkable. WBC normal. Stable vitals. Will discharge home with muscle relaxer and return precautions.. 05/22 12:40 Order name: Basic Metabolic Panel; Complete Time: 15:24 05/22 12:40 Order name: CBC with Diff; Complete Time: 15:24 05/22 12:40 Order name: NT PRO-BNP; Complete Time: 15:24 05/22 12:40 Order name: PT-INR; Complete Time: 15:24 05/22 12:40 Order name: Troponin HS; Complete Time: 15:24 05/22 12:40 Order name: XRAY Chest (1 view); Complete Time: 15:24 05/22 12:40 Order name: Soft Tissue Neck W/Contr CT; Complete Time: 15:43 05/22 12:40 Order name: EKG; Complete Time: 12:40 05/22 12:40 Order name: IV Start; Complete Time: 13:58 05/22 12:40 Order name: Cardiac monitoring; Complete Time: 13:34 05/22 12:40 Order name: EKG - Nurse/Tech; Complete Time: 13:54 05/22 12:40 Order name: Labs collected and sent; Complete Time: 13:54 05/22 12:40 Order name: O2 Per Protocol; Complete Time: 13:34 05/22 12:40 Order name: O2 Sat Monitoring; Complete Time: 13:34 ll1 Administered Medications: 13:40 Drug: Cyclobenzaprine PO 10 mg PO once Route: PO; mb9 15:44 Follow up: Response: No adverse reaction mb9 13:42 Drug: Gabapentin PO 300 mg PO once Route: PO; mb9 15:44 Follow up: Response: No adverse reaction mb9 15:47 Drug: traMADol PO 50 mg PO once Route: PO; mb9 15:54 Follow up: Response: No adverse reaction mb9 Disposition Summary: 05/22/23 15:45 Discharge Ordered Notes: Location: Home rn Problem: new rn Symptoms: have improved rn Condition: Stable rn Diagnosis - Strain of muscle, fascia and tendon at neck level, initial encounter rn - Spasmodic torticollis rn Followup: rn - With: Private Physician - When: As needed - Reason: Recheck today's complaints, Re-evaluation by your physician Discharge Instructions: - Discharge Summary Sheet rn - Acute Torticollis, Adult rn Forms: - Medication Reconciliation Form rn - Thank You Letter rn - Antibiotic rn private duty - Prescription Opioid Use rn - Patient Portal Instructions rn - Leadership Thank You Letter rn Prescriptions: - Cyclobenzaprine 5 mg Oral tablet - take 1 tablet ORAL route 1 to 2 times per day As needed; 10 tablet; Refills: 0, rn Product Selection Permitted Signatures: Dispatcher [employer] Warren Cabrera MD MD rn Lewis, Lynsay RN RN ll1 Dominique Gillette RN RN mb9
[2023-05-22 16:02] VITALS: TEMP 97.8
[2023-05-22 16:26] VITALS: BP 138/84; O2SAT 96
--- NOTE | 2023-05-25 14:38 | EKG ---
Test Date: 2023-05-22 Test Time: 13:45:52 Bilingual Research Interviewer: MB MEASUREMENT RESULTS: Intervals: Rate: 82 LA: 154 QRSD: 98 QT: 358 QTc: 418 [place]: P: 61 LA: 154 QRS: -46 T: 32 INTERPRETIVE STATEMENTS: Normal sinus rhythm Left axis deviation Abnormal ECG Compared to ECG 07/05/2022 18:49:38 Myocardial infarct finding no longer present Prolonged QT interval no longer present Electronically Signed On 05-25-23 14:29:52 [employer] by Holger Tavares
== END ==
LOC: ER 12:11
DX: S16.1XXA Strain of muscle, fascia and tendon at neck level, initial encounter (principal); G24.3 Spasmodic torticollis; Z88.0 Allergy status to penicillin; Z88.1 Allergy status to other antibiotic agents; Z91.040 Latex allergy status
CPT/HCPCS: 93005; 85025; 80048; 36415; 85610; 84484; 83880; 70491; 71045; Q9967

== ENCOUNTER 2024-01-18 11:28 | Emergency (ER) | payer OTHER ==
--- NOTE | 2024-01-18 12:46 | RAD REPORT ---
Exam:Wrist Left 3 View HISTORY: Left wrist pain FINDINGS: No acute fracture or dislocation seen Calcific densities within the wrist probably are chronic. Soft tissue swelling is present. Old fracture fifth tarsal Osteoporosis
--- NOTE | 2024-01-18 12:47 | RAD REPORT ---
Exam:Hand Left 3 View CLINICAL HISTORY: Left hand pain FINDINGS: No fracture or dislocation seen Osteoporosis. Old fracture fifth metacarpal. Amputation portion of the third digit.
[2024-01-18] MEDS ORDERED: predniSONE 20 MG TAB ONE (13:14)
[2024-01-18] MEDS ORDERED: HYDROCODONE/APAP 10/325 TAB ONE (13:15)
[2024-01-18] MEDS ORDERED: KETOROLAC 30 MG/ML INJ ONE (13:15)
[2024-01-18 14:20] LABS: Absolute Eosinophils 0.1 K/uL (0-0.5); Absolute Lymphocytes (CBC) 0.9 K/uL (0.7-4.9); Absolute Monocytes 0.9 K/uL (0.1-1.3); Absolute Neutrophil 8.2 K/uL (1.8-8.0); Basophils % 0.3 % (0-1.3); Eosinophils % 1.1 % (0-4.4); Hematocrit 41.1 % (39.6-49.0); Hemoglobin 13.3 g/dL (13.6-17.9); Lymphocytes % 9.3 % (15.3-44.8); MCH 30.2 pg (27.0-35.0); MCHC 32.3 g/dL (32.0-36.0); MCV 93.4 fL (80-100); Monocytes % 8.7 % (3.3-12.3); Neutrophils % 80.6 % (41.7-73.7); Platelets 194 thou/uL (152-406); Red Cell Distribution Width 13.9 % (12.1-15.2)
--- NOTE | 2024-01-18 14:43 | ER ---
Nurse's Notes [facility] Name: Timbo Medrano Age: 78 yrs Sex: Male : 1945 Arrival Date: 01/18/2024 Time: 11:28 Bed 13 Private MD: Diagnosis: Swelling to left wrist;Pain to left wrist Presentation: 01/17 11:47 Ebola Screen: Patient denies travel to an Ebola-affected area in the 21 days before ll1 illness onset. Initial Sepsis Screen: Does the patient meet any 2 criteria? No. Patient's initial sepsis screen is negative. Does the patient have a suspected source of infection? No. Patient's initial sepsis screen is negative. 11:47 Method Of Arrival: Ambulatory ll1 11:57 Chief complaint: Patient states: L hand pain and swelling for 2 days. No trauma. ll1 Coronavirus screen: Client denies travel out of the [place] in the last 14 days. At this time, the client does not indicate any symptoms associated with coronavirus-19. Risk Assessment: Do you want to hurt yourself or someone else? Patient reports no desire to harm self or others. Onset of symptoms was January 17, 2024. 11:57 Acuity: JULIO 3 ll1 Triage Assessment: 11:58 General: Appears uncomfortable, Behavior is calm, cooperative, appropriate for age. ll1 Pain: Complains of pain in left hand Pain currently is 10 out of 10 on a pain scale. Quality of pain is described as aching, throbbing. Musculoskeletal: Circulation, motion, and sensation intact. Capillary refill < 3 seconds, in left fingers. Swelling present in left hand Tenderness present in left hand Reports pain in left hand. Historical: - Allergies: 11:38 Amoxicillin; ll1 11:38 Latex; ll1 11:38 PENICILLINS; ll1 - PMHx: 11:38 CA R eye; Cellulitis; COPD; Hypothyroidism; lymphedema; ll1 - Immunization history:: Adult Immunizations up to date. - Infectious Disease History:: Denies. - Family history:: not pertinent. - Social history:: Smoking status: unknown. Screenin:26 [facility] ED Fall Risk Assessment (Adult) History of falling in the last 3 months, cm10 including since admission No falls in past 3 months (0 pts) Confusion or Disorientation No (0 pts) Intoxicated or Sedated No (0 pts) Impaired Gait No (0 pts) Mobility Assist Device Used No (0 pt) Altered Elimination No (0 pt) Score/Fall Risk Level 0 - 2 = Low Risk Oriented to surroundings, Maintained a safe environment, Hourly rounding (assess needs \T\ fall precautionary measures) done. Abuse screen: Denies threats or abuse. Denies injuries from another. Nutritional screening: No deficits noted. Tuberculosis screening: No symptoms or risk factors identified. Assessment: 13:26 General: Appears in no apparent distress. uncomfortable, Behavior is calm, cooperative. cm10 Pain: Complains of pain in left hand Pain does not radiate. Pain currently is 10 out of 10 on a pain scale. Neuro: No deficits noted. Level of Consciousness is awake, alert, obeys commands, Oriented to person, place, time, situation, Appropriate for age. Respiratory: No deficits noted. Airway is patent Respiratory effort is even, unlabored, Respiratory pattern is regular, symmetrical. Musculoskeletal: Swelling present in left hand Reports pain in left hand. Vital Signs: 11:57 BP 140 / 90; Pulse 79; Resp 18; Temp 97.1; Pulse Ox 95% ; Weight 111.13 kg; Height 5 ll1 ft. 9 in. ; Pain 10/10; 13:27 BP 124 / 83; Pulse 77; Resp 16; Pulse Ox 97% on R/A; cm10 14:56 BP 121 / 93; Pulse 55; Resp 16; Pulse Ox 93% ; cm10 11:57 Body Mass Index 36.18 (111.13 kg, 175.26 cm) ll1 11:57 Pain Scale: Adult ll1 ED Course: 11:32 Patient arrived in ED. mg5 11:37 Arm band placed on. ll1 11:47 Jose Conte MD is Attending Physician. rt 11:54 Attending Physician role handed off by Jose Conte MD bo1 11:54 Eduin Bernal MD is Attending Physician. bo1 11:57 Attending Physician role handed off by Eduin Bernal MD rt 11:57 Jose Conte MD is Attending Physician. rt 11:58 Triage completed. ll1 12:37 Wrist Left (3 View) XRAY In Process Unspecified. EDMS 12:37 Hand Left 3 View XRAY In Process Unspecified. EDMS 13:05 Patient placed in an exam room, on a stretcher. hb 13:09 Isis Oviedo, RN is Primary Nurse. cm10 13:25 Uric Acid Sent. cm10 13:25 CMP Sent. cm10 13:25 CBC with Diff Sent. cm10 13:26 Patient has correct armband on for positive identification. Bed in low position. Call cm10 light in reach. Provided Education on: ER process and procedures.. 13:26 Initial lab(s) drawn, by me, sent to lab. Inserted saline lock: 20 gauge in right cm10 antecubital area, using aseptic technique. Blood collected. Flushed with 10 mL NS. 14:42 Gerson Carl MD is Referral Physician. rt 15:10 No provider procedures requiring assistance completed. IV discontinued, intact, cm10 bleeding controlled, No redness/swelling at site. Pressure dressing applied. Administered Medications: 13:25 Drug: [place] PO 10 mg-325 mg 1 tabs PO once Route: PO; cm10 14:15 Follow up: Response: No adverse reaction cm10 13:26 Drug: predniSONE PO 40 mg PO once Route: PO; cm10 14:15 Follow up: Response: No adverse reaction cm10 13:26 Drug: Ketorolac IVP 15 mg IVP once Route: IVP; Site: right antecubital; cm10 14:15 Follow up: Response: No adverse reaction cm10 14:45 Not Given (Other Intervention Used; m): morphineor iv 4 mg IVP once over 4 mins rt 14:51 Drug: Ondansetron IVP 4 mg IVP once; over 2 minutes Route: IVP; Site: right antecubital;cm10 15:10 Follow up: Response: No adverse reaction cm10 14:51 Drug: fentaNYL (PF) IVP 75 mcg IVP once Route: IVP; Site: right antecubital; cm10 15:10 Follow up: Response: No adverse reaction cm10 Medication: 13:26 VIS not applicable for this client. cm10 Outcome: 14:43 Discharge ordered by MD. rt 15:10 Discharged to home ambulatory, with friend, cm10 15:10 Condition: good 15:10 Discharge instructions given to patient, Instructed on discharge instructions, follow up and referral plans. medication usage, Demonstrated understanding of instructions, follow-up care, medications, Prescriptions given X 2, 15:11 Patient left the ED. cm10 Signatures: Dispatcher [employer] EDPascale Rain RN RN Solo Williamson RN RN ll1 Jose Conte MD MD rt Isis Oviedo RN RN cm10 Britta Huang mg5 Eduin Bernal MD MD bo1
--- NOTE | 2024-01-18 14:43 | EDPHYS ---
Physician Documentation [facility] Name: Timbo Medrano Age: 78 yrs Sex: Male : 1945 Arrival Date: 01/18/2024 Time: 11:28 Bed 13 Private MD: ED Physician Jose Conte HPI: 01/17 16:50 This 78 yrs old Male presents to ER via Ambulatory with complaints of Hand Swelling. rt 16:50 Patient presents to the ED with swelling to the left wrist since last night. Reports rt pain to the area. Denies any redness. Denies other acute complaints, symptoms are moderate in severity, no other aggravating or alleviating factors.. Historical: - Allergies: 11:38 Amoxicillin; ll1 11:38 Latex; ll1 11:38 PENICILLINS; ll1 - PMHx: 11:38 CA R eye; Cellulitis; COPD; Hypothyroidism; lymphedema; ll1 - Immunization history:: Adult Immunizations up to date. - Infectious Disease History:: Denies. - Family history:: not pertinent. - Social history:: Smoking status: unknown. ROS: 16:50 Constitutional: Negative for fever, chills, and weight loss, Cardiovascular: Negative rt for chest pain, palpitations, and edema, Respiratory: Negative for shortness of breath, cough, wheezing, and pleuritic chest pain, Abdomen/GI: Negative for abdominal pain, nausea, vomiting, diarrhea, and constipation, Skin: Negative for injury, rash, and discoloration, Neuro: Negative for headache, weakness, numbness, tingling, and seizure, 16:50 MS/extremity: Positive for pain, swelling, Exam: 16:50 Constitutional: This is a well developed, well nourished patient who is awake, alert, rt and in no acute distress. Head/Face: Normocephalic, atraumatic. Chest/axilla: Normal chest wall appearance and motion. Nontender with no deformity. No lesions are appreciated. Cardiovascular: Regular rate and rhythm with a normal S1 and S2. No gallops, murmurs, or rubs. Normal PMI, no JVD. No pulse deficits. Respiratory: Lungs have equal breath sounds bilaterally, clear to auscultation and percussion. No rales, rhonchi or wheezes noted. No increased work of breathing, no retractions or nasal flaring. Abdomen/GI: Soft, non-tender, with normal bowel sounds. No distension or tympany. No guarding or rebound. No evidence of tenderness throughout. Skin: Warm, dry with normal turgor. Normal color with no rashes, no lesions, and no evidence of cellulitis. 16:50 Musculoskeletal/extremity: Swelling noted to left wrist, tenderness diffusely. There is no erythema, appreciable warmth.. Vital Signs: 11:57 BP 140 / 90; Pulse 79; Resp 18; Temp 97.1; Pulse Ox 95% ; Weight 111.13 kg; Height 5 ll1 ft. 9 in. ; Pain 10/10; 13:27 BP 124 / 83; Pulse 77; Resp 16; Pulse Ox 97% on R/A; cm10 14:56 BP 121 / 93; Pulse 55; Resp 16; Pulse Ox 93% ; cm10 11:57 Body Mass Index 36.18 (111.13 kg, 175.26 cm) ll1 11:57 Pain Scale: Adult ll1 MDM: 11:54 Medical Screening Exam initiated bo1 16:50 Differential diagnosis: Gout, tendinitis, fracture. Data reviewed: vital signs, nurses rt notes, lab test result(s), radiologic studies. I considered the following discharge prescriptions or medication management in the emergency department Medications were administered in the Emergency Department. See MAR. Independent interpretation of the following test(s) in the Emergency Department X-Ray: My interpretation is No fracture seen on my interpretation of x-ray images. Test considered but Not performed: Other Details Signs and symptoms are not consistent with a septic arthritis, do not believe that arthrocentesis is emergently indicated.. Care significantly affected by the following chronic conditions: Chronic Obstructive Pulmonary Disease. Counseling: I had a detailed discussion with the patient and/or guardian regarding the historical points, exam findings, and any diagnostic results supporting the discharge/admit diagnosis, lab results, radiology results, the need for outpatient follow up, to return to the emergency department if symptoms worsen or persist or if there are any questions or concerns that arise at home, Discussed signs and symptoms of septic arthritis should his symptoms worsen for him to return. I do not believe that he has septic arthritis at this time.. Response to treatment: the patient's symptoms have mildly improved after treatment. 01/17 12:03 Order name: CBC with Diff; Complete Time: 14:42 rt 01/17 12:03 Order name: CMP; Complete Time: 15:09 rt 01/17 12:03 Order name: Uric Acid; Complete Time: 15:09 rt 01/17 12:03 Order name: Wrist Left (3 View) XRAY; Complete Time: 13:05 rt 01/17 12:03 Order name: Hand Left 3 View XRAY; Complete Time: 13:05 rt Administered Medications: 13:25 Drug: [place] PO 10 mg-325 mg 1 tabs PO once Route: PO; cm10 14:15 Follow up: Response: No adverse reaction cm10 13:26 Drug: predniSONE PO 40 mg PO once Route: PO; cm10 14:15 Follow up: Response: No adverse reaction cm10 13:26 Drug: Ketorolac IVP 15 mg IVP once Route: IVP; Site: right antecubital; cm10 14:15 Follow up: Response: No adverse reaction cm10 14:45 Not Given (Other Intervention Used; m): morphineor iv 4 mg IVP once over 4 mins rt 14:51 Drug: Ondansetron IVP 4 mg IVP once; over 2 minutes Route: IVP; Site: right antecubital;cm10 15:10 Follow up: Response: No adverse reaction cm10 14:51 Drug: fentaNYL (PF) IVP 75 mcg IVP once Route: IVP; Site: right antecubital; cm10 15:10 Follow up: Response: No adverse reaction cm10 Disposition Summary: 01/18/24 14:43 Discharge Ordered Notes: Location: Home rt Problem: new rt Symptoms: have improved rt Condition: Stable rt Diagnosis - Swelling to left wrist rt - Pain to left wrist rt Followup: rt - With: Gerson Carl MD - When: 2 - 3 days - Reason: Discharge Instructions: - Discharge Summary Sheet rt - Wrist Pain, Adult rt Forms: - Medication Reconciliation Form rt - Antibiotic Education rt - Prescription Opioid Use rt - Patient Portal Instructions rt - Leadership Thank You Letter rt Prescriptions: - acetaminophen-codeine 300-30 mg Oral tablet - take 1 tablet ORAL route every 6 hours; 15 tablet; Refills: 0, Product rt Selection Permitted - Prednisone 20 mg Oral Tablet - take 2 tablets ORAL route once daily for 5 days; 10 tablet; Refills: 0, Product rt Selection Permitted Signatures: Dispatcher [employer] EDMS Solo Williamson RN RN ll1 Jose Conte MD MD rt Isis Oviedo RN RN cm10 JjiEduin MD MD bo1 Corrections: (The following items were deleted from the chart) 12: 12:03 CBC+H.LAB.BRZ ordered. EDMS EDMS 12: 12:03 COMPREHENSIVE METABOLIC PANEL+C.LAB.BRZ ordered. EDMS EDMS 12: 12:03 URIC ACID+C.LAB.BRZ ordered. EDMS EDMS
[2024-01-18] MEDS ORDERED: ONDANSETRON 4 MG/2 ML VIAL ONE (14:46)
[2024-01-18] MEDS ORDERED: FENTANYL CITR 100 MCG/2 ML ONE (14:46)
[2024-01-18 15:05] LABS: AST/SGOT 12 U/L (15-37); Albumin 3.6 g/dL (3.4-5.0); Albumin/Globulin Ratio 0.9 (1.1-1.8); Alkaline Phosphatase 72 U/L (45-117); BUN Blood Urea Nitrogen 14 mg/dL (7-18); Bicarbonate 30 mEq/L (21-32); Globulin 3.9 g/dL (2.3-3.5); Glomerular Filtration Rate 91 ml/min (=/>90); Glucose Level 126 mg/dL (74-106); Protein, Total 7.5 g/dL (6.4-8.2); Sodium Level 137 mEq/L (136-145); Uric Acid 6.2 mg/dL (3.5-7.2)
[2024-01-18 15:08] LABS: ALT/SGPT < 14 U/L (16-61)
[2024-01-18 16:59] VITALS: TEMP 97.1
[2024-01-18 17:01] VITALS: BP 121/93; O2SAT 93
== END 2024-01-18 15:11 | disposition home or self-care (01) ==
LOC: ER 11:28
DX: R22.32 Localized swelling, mass and lump, left upper limb (principal); M25.532 Pain in left wrist
CPT/HCPCS: 85025; 36415; 84550; 80053; 73130; 73110; 96375; 96374; 99284; J7512; J3010; J2405

== ENCOUNTER 2024-05-11 09:36 | Emergency (ER) | payer OTHER ==
[2024-05-11 10:46] LABS: Absolute Eosinophils 0.3 K/uL (0-0.5); Absolute Lymphocytes (CBC) 1.4 K/uL (0.7-4.9); Absolute Monocytes 1.2 K/uL (0.1-1.3); Absolute Neutrophil 5.9 K/uL (1.8-8.0); Basophils % 0.5 % (0-1.3); Eosinophils % 3.7 % (0-4.4); Hematocrit 38.4 % (39.6-49.0); Hemoglobin 12.9 g/dL (13.6-17.9); Lymphocytes % 16.2 % (15.3-44.8); MCH 29.9 pg (27.0-35.0); MCHC 33.6 g/dL (32.0-36.0); MCV 88.9 fL (80-100); MPV 7.6 fL (7.6-11.3); Monocytes % 13.2 % (3.3-12.3); Neutrophils % 66.4 % (41.7-73.7); Nucleated Red Blood Cells % 0.1 % (0-0); Platelets 179 thou/uL (152-406); RBC Red Blood Cell Count 4.32 M/uL (4.33-5.43); Red Cell Distribution Width 15.1 % (12.1-15.2)
[2024-05-11 11:01] LABS: PT Prothrombin Time 11.9 SECONDS (9.4-12.5); Protime INR 1.13
[2024-05-11] MEDS ORDERED: MORPHINE 2 MG/ML SYR ONE (11:03)
[2024-05-11] MEDS ORDERED: ONDANSETRON 4 MG/2 ML VIAL ONE (11:03)
[2024-05-11] MEDS ORDERED: dexAMETHasone 10 MG/ML VIAL ONE (11:03)
[2024-05-11] MEDS ORDERED: NA CHLORIDE 0.9% 500 ML ONE (11:04)
[2024-05-11 11:06] LABS: Albumin 3.2 g/dL (3.4-5.0); Albumin/Globulin Ratio 0.9 (1.1-1.8); Anion Gap 7.3 mEq/L (5.0-15.0); Bilirubin Direct 0.2 mg/dL (0-0.2); Bilirubin Indirect, Calculated 0.6 mg/dL (0.2-0.8); Bilirubin Total 0.8 mg/dL (0.2-1.0); Globulin 3.4 g/dL (2.3-3.5); Magnesium 1.8 mg/dL (1.6-2.4); Potassium 4.3 mEq/L (3.5-5.1); Protein, Total 6.6 g/dL (6.4-8.2); Troponin High Sensitivity 8.5 pg/mL (<58.9)
--- NOTE | 2024-05-11 11:48 | RAD REPORT ---
EXAMINATION: CT ABDOMEN AND PELVIS WITH CONTRAST CLINICAL INDICATION: Abdominal pain TECHNIQUE: CT abdomen and pelvis was performed, after the administration of 100 cc Isovue-300.. Sagit kavin and coronal reconstructions were obtained. One or more of the following dose reduction techniques were used: Automated exposure control, adjustment of the mA and kV according to patient si ze, and iterative reconstruction. Unless otherwise specified, incidental findings do not require dedicated imaging follow-up. [id number]. Oral contrast was not given which limits evaluation of bowel and appendix. COMPARISON: .2006 FINDINGS: Liver, spleen, pancreas, and adrenals appear unremarkable. Multiple, small bilateral renal calculi. No hydronephrosis. Small right renal cyst. Small to moderate umbilical hernia contains fat. Mild stranding within the fat. Small right inguinal hernia contains fat. Post surgical changes left inguinal hernia repair. There is questionable recurrence of the hernia. No evidence of diverticulitis. Minimal right pleural effusion. Several compression deformities lower thoracic vertebral bodies probably chronic. : IMPRESSION: Multiple, bilateral nonobstructing renal calculi. Small to moderate umbilical hernia contains fat. Small right inguinal hernia contains fat.
--- NOTE | 2024-05-11 11:51 | RAD REPORT ---
Procedure: Chest Single View HISTORY: Cough COMPARISON: 2023 FINDINGS: The lungs appear clear of acute infiltrate. No significant pleural effusion noted.. Chronic blunting of the right lateral costophrenic sulcus The heart is mildly to moderately enlarged. Prominent mediastinal fat unchanged IMPRESSION: No acute abnormality is displayed.
--- NOTE | 2024-05-11 12:02 | RAD REPORT ---
Exam:Pelvis CLINICAL HISTORY: Pelvic pain FINDINGS: No fracture or dislocation seen Mild osteoarthritis involves the hips.
[2024-05-11 12:25] LABS: Sqamous Epithelial None Seen /HPF (None Seen); Urine Bacteria None Seen /HPF (<20); Urine Bilirubin NEGATIVE (Negative); Urine Blood Trace (Negative); Urine Clarity Clear (Clear); Urine Color Light-Yellow (Yellow); Urine Culture Reflex Order NOT NEEDED; Urine Glucose NEGATIVE (Negative); Urine Ketones NEGATIVE (Negative); Urine Microscopic Reflex YN ORDER UMIC; Urine Mucus Slight /HPF (None Seen); Urine Nitrite NEGATIVE (Negative); Urine Protein NEGATIVE (Negative); Urine RBC <5 /HPF (None Seen); Urine Urobilinogen Normal (Normal); Urine WBC <5 /HPF (<5)
--- NOTE | 2024-05-11 13:26 | EDPHYS ---
Physician Documentation [facility] Name: Timbo Medrano Age: 79 yrs Sex: Male : 1945 Arrival Date: 05/11/2024 Time: 09:36 Bed 13 Private MD: HEAVEN Physician Prasanth Corona HPI: 05/11 10:43 This 79 yrs old Male presents to ER via Ambulatory with complaints of Groin daphnie Pain. 10:43 The patient or guardian reports decreased range of motion, pain. that occurred at an [facility] unknown site. The complaints affect the pelvis. Onset: The symptoms/episode began/occurred 2 day(s) ago. Modifying factors: The symptoms are alleviated by remaining still, the symptoms are aggravated by any movement. The patient presents with abdominal pain in the lower abdomen. The patient presents with pain left groin. Modifying factors: The symptoms are alleviated by nothing, the symptoms are aggravated by nothing. Associated signs and symptoms: Loss of consciousness: the patient experienced no loss of consciousness. Historical: - Allergies: 10:23 Amoxicillin; ld1 10:23 Latex; ld1 10:23 PENICILLINS; ld1 - PMHx: 10:23 CA R eye; Hypothyroidism; Cellulitis; COPD; lymphedema; ld1 - Immunization history:: Adult Immunizations up to date. - Infectious Disease History:: Denies. - Family history:: not pertinent. - Social history:: Smoking status: Patient denies any tobacco usage or history of. ROS: 10:43 Constitutional: Negative for fever, chills, and weight loss, Eyes: Negative for injury, daphnie pain, redness, and discharge, ENT: Negative for injury, pain, and discharge, Neck: Negative for injury, pain, and swelling, Cardiovascular: Negative for chest pain, palpitations, and edema, Respiratory: Negative for shortness of breath, cough, wheezing, and pleuritic chest pain, Abdomen/GI: Negative for abdominal pain, nausea, vomiting, diarrhea, and constipation, Back: Negative for injury and pain, Skin: Negative for injury, rash, and discoloration, Neuro: Negative for headache, weakness, numbness, tingling, and seizure, Psych: Negative for depression, anxiety, suicide ideation, homicidal ideation, and hallucinations, Allergy/Immunology: Negative for hives, rash, and allergies, Endocrine: Negative for neck swelling, polydipsia, polyuria, polyphagia, and marked weight changes, Hematologic/Lymphatic: Negative for swollen nodes, abnormal bleeding, and unusual bruising, 10:43 MS/extremity: Positive for decreased range of motion, pain, tenderness, of the pelvis, Exam: 10:43 Constitutional: This is a well developed, well nourished patient who is awake, alert, daphnie and in no acute distress. Head/Face: Normocephalic, atraumatic. Eyes: Pupils equal round and reactive to light, extra-ocular motions intact. Lids and lashes normal. Conjunctiva and sclera are non-icteric and not injected. Cornea within normal limits. Periorbital areas with no swelling, redness, or edema. ENT: Nares patent. No nasal discharge, no septal abnormalities noted. Tympanic membranes are normal and external auditory canals are clear. Oropharynx with no redness, swelling, or masses, exudates, or evidence of obstruction, uvula midline. Mucous membranes moist. Neck: Trachea midline, no thyromegaly or masses palpated, and no cervical lymphadenopathy. Supple, full range of motion without nuchal rigidity, or vertebral point tenderness. No Meningismus. Chest/axilla: Normal chest wall appearance and motion. Nontender with no deformity. No lesions are appreciated. Cardiovascular: Regular rate and rhythm with a normal S1 and S2. No gallops, murmurs, or rubs. Normal PMI, no JVD. No pulse deficits. Respiratory: Lungs have equal breath sounds bilaterally, clear to auscultation and percussion. No rales, rhonchi or wheezes noted. No increased work of breathing, no retractions or nasal flaring. Abdomen/GI: Soft, non-tender, with normal bowel sounds. No distension or tympany. No guarding or rebound. No evidence of tenderness throughout. Back: No spinal tenderness. No costovertebral tenderness. Full range of motion. Male : Normal genitalia with no discharge or lesions. Skin: Warm, dry with normal turgor. Normal color with no rashes, no lesions, and no evidence of cellulitis. Neuro: Awake and alert, GCS 15, oriented to person, place, time, and situation. Cranial nerves II-XII grossly intact. Motor strength 5/5 in all extremities. Sensory grossly intact. Cerebellar exam normal. Normal gait. Psych: Awake, alert, with orientation to person, place and time. Behavior, mood, and affect are within normal limits. 10:43 Musculoskeletal/extremity: ROM: limited active range of motion, limited passive range of motion, in the pelvis, Circulation is intact in all extremities. Sensation intact. Compartment Syndrome exam of affected extremity: is normal. DVT Exam: no swelling, negative Homans' sign noted on exam, no appreciated bluish discoloration, no erythema, no increased warmth, pain, tenderness, 10:52 ECG was reviewed by the Attending Physician. [facility] Vital Signs: 10:22 BP 131 / 72; Pulse 75; Resp 18; Temp 97.8(TE); Pulse Ox 95% on R/A; Weight 108.86 kg; ld1 Height 5 ft. 9 in. ; Pain 9/10; 10:26 Pulse Ox 98% on 2 lpm NC; ld1 11:59 Pulse 89; Resp 18; Pulse Ox 100% on 3 lpm NC; ld1 10:22 Body Mass Index 35.44 (108.86 kg, 175.26 cm) ld1 10:22 Pain Scale: Adult ld1 MDM: 09:52 Medical Screening Exam initiated daphnie 10:12 Medical Screening Exam initiated daphnie 10:47 Differential diagnosis: bursitis, arthritis, strain, nonspecific abdominal pain, UTI, daphnie urinary retention. Data reviewed: vital signs, nurses notes, lab test result(s), EKG, radiologic studies, plain films. Consideration of Admission/Observation Escalation of care including admission/observation considered. I considered the following discharge prescriptions or medication management in the emergency department Medications were administered in the Emergency Department. See MAR. Independent interpretation of the following test(s) in the Emergency Department EKG: See my EKG interpretation above. Test considered but Not performed: MRI: no mri lumbar, pelvis. Historians other than the Patient: Spouse/Significant Other: somewhat informed. Counseling: I had a detailed discussion with the patient and/or guardian regarding the historical points, exam findings, and any diagnostic results supporting the discharge/admit diagnosis, lab results, radiology results. 05/11 10:35 Order name: Basic Metabolic Panel; Complete Time: 13:13 [facility] 05/11 10:35 Order name: CBC with Diff; Complete Time: 13:13 [facility] 05/11 10:35 Order name: LFT's; Complete Time: 13:13 05/11 10:35 Order name: Magnesium; Complete Time: 13:13 05/11 10:35 Order name: NT PRO-BNP; Complete Time: 13:13 05/11 10:35 Order name: PT-INR; Complete Time: 13:13 05/11 10:35 Order name: Troponin HS; Complete Time: 13:13 05/11 10:35 Order name: Lipase; Complete Time: 13:13 05/11 10:35 Order name: Urinalysis w/ reflexes; Complete Time: 13:13 05/11 10:35 Order name: XRAY Chest (1 view); Complete Time: 13:13 05/11 10:35 Order name: CT Abd/Pelvis - IV Contrast Only; Complete Time: 13:05/11 10:35 Order name: Pelvis XRAY; Complete Time: 13:13 05/11 10:35 Order name: EKG; Complete Time: 10:36 05/11 10:35 Order name: Cardiac monitoring; Complete Time: 10:42 05/11 10:35 Order name: EKG - Nurse/Tech; Complete Time: 10:42 05/11 10:35 Order name: IV Saline Lock; Complete Time: 10:42 05/11 10:35 Order name: Labs collected and sent; Complete Time: 10:42 05/11 10:35 Order name: O2 Per Protocol; Complete Time: 10:42 05/11 10:35 Order name: O2 Sat Monitoring; Complete Time: 10:43 daphnie EC:52 Rate is 78 beats/min. Rhythm is regular. QRS interval is normal. QT interval is normal. daphnie No Q waves. T waves are Normal. No ST changes noted. Clinical impression: NSR w/ Non-specific ST/T Changes and No evidence of ischemia. Interpreted by me. Reviewed by me. Administered Medications: 11:05 Drug: morphine IVP or IV 2 mg IVP once over 4 mins Route: IVP; Infused Over: 4 mins; ld1 Site: right forearm; 13:55 Follow up: Response: No adverse reaction ld1 11:11 Drug: Ondansetron IVP 4 mg IVP once; over 2 minutes Route: IVP; Site: right forearm; ld1 13:55 Follow up: Response: No adverse reaction ld1 11:11 Drug: Decadron - Dexamethasone IVP 10 mg IVP once Route: IVP; Site: right forearm; ld1 13:57 Follow up: Response: No adverse reaction ld1 11:12 Drug: NS 0.9% IV 500 ml 500 ml IV at 1 bolus once; to be given as a bolus over 30 ld1 minutes Volume: 500 ml; Route: IV; Rate: 1 bolus; Site: right forearm; 13:56 Follow up: Response: No adverse reaction; IV Status: Completed infusion; IV Intake: ld1 500ml 11:12 Drug: morphine IVP or IV 2 mg IVP once over 4 mins Route: IVP; Infused Over: 4 mins; ld1 Site: right forearm; 13:56 Follow up: Response: No adverse reaction ld1 Disposition Summary: 05/11/24 13:25 Discharge Ordered Notes: Location: Home [facility] Problem: new daphnie Symptoms: have improved daphnie Condition: Stable daphnie Diagnosis - Pain in unspecified hip daphnie - Obesity, unspecified daphnie - Low back pain daphnie Followup: daphnie - With: Private Physician - When: 2 - 3 days - Reason: Recheck today's complaints, Continuance of care, Re-evaluation by your physician Discharge Instructions: - Discharge Summary Sheet daphnie - Joint Pain daphnie - Arthritis daphnie - Acute Back Pain, Adult daphnie - Chronic Back Pain daphnie - Musculoskeletal Pain daphnie - Obesity, Adult [facility] Forms: - Medication Reconciliation Form daphnie - Antibiotic Education daphnie - Prescription Opioid Use daphnie - Patient Portal Instructions [facility] - Leadership Thank You Letter [facility] Prescriptions: - acetaminophen-codeine 300-30 mg Oral tablet - take 1 tablet ORAL route every 4 hours as needed for pain; 20 tablet; Refills: daphnie 0, Product Selection Permitted - diclofenac sodium 25 mg Oral tablet, delayed release (enteric coated) - take 1 tablet ORAL route 3 times per day; 21 tablet; Refills: 0, Product daphnie Selection Permitted Signatures: Dispatcher [employer] EDMS Prasanth Corona MD MD cha Sims, Lauren RN RN ld1 Corrections: (The following items were deleted from the chart) 10:36 10:36 Abdomen Pelvis W Con+CT.RAD.BRZ ordered. EDMS EDMS 10:36 10:36 Pelvis+RAD.RAD.BRZ ordered. EDMS EDMS
--- NOTE | 2024-05-11 13:26 | ER ---
Nurse's Notes [facility] Name: Timbo Medrano Age: 79 yrs Sex: Male : 1945 Arrival Date: 05/11/2024 Time: 09:36 Bed 13 Private MD: Diagnosis: Pain in unspecified hip;Obesity, unspecified;Low back pain Presentation: 05/11 10:22 Chief complaint: Patient states: Groin pain started last night - difficulty walking. ld1 Level pain 10 when walking. Pt reports this happening 1 month ago and was hospitalized in [place]. Coronavirus screen: At this time, the client does not indicate any symptoms associated with coronavirus-19. Ebola Screen: No symptoms or risks identified at this time. Initial Sepsis Screen: Does the patient meet any 2 criteria? No. Patient's initial sepsis screen is negative. Does the patient have a suspected source of infection? No. Patient's initial sepsis screen is negative. Risk Assessment: Do you want to hurt yourself or someone else? Patient reports no desire to harm self or others. Onset of symptoms was May 11, 2024. 10:22 Method Of Arrival: Ambulatory ld1 10:22 Acuity: JULIO 3 ld1 Triage Assessment: 10:24 General: Appears in no apparent distress. uncomfortable, Behavior is calm, cooperative, ld1 appropriate for age. Pain: Complains of pain in pelvis Pain does not radiate. Pain currently is 8 out of 10 on a pain scale. Quality of pain is described as throbbing, Pain began suddenly, Is continuous. EENT: No signs and/or symptoms were reported regarding the EENT system. Neuro: Level of Consciousness is awake, alert, obeys commands, Oriented to person, place, time, situation, Appropriate for age. Cardiovascular: Capillary refill < 3 seconds Patient's skin is warm and dry. Respiratory: Airway is patent Respiratory effort is even, unlabored. GI: Abdomen is round non-distended. : No signs and/or symptoms were reported regarding the genitourinary system. Derm: No signs and/or symptoms reported regarding the dermatologic system. Musculoskeletal: No signs and/or symptoms reported regarding the musculoskeletal system. Historical: - Allergies: 10:23 Amoxicillin; ld1 10:23 Latex; ld1 10:23 PENICILLINS; ld1 - PMHx: 10:23 CA R eye; Hypothyroidism; Cellulitis; COPD; lymphedema; ld1 - Immunization history:: Adult Immunizations up to date. - Infectious Disease History:: Denies. - Family history:: not pertinent. - Social history:: Smoking status: Patient denies any tobacco usage or history of. Screenin:[address] [facility] ED Fall Risk Assessment (Adult) History of falling in the last 3 months, ld1 including since admission No falls in past 3 months (0 pts) Confusion or Disorientation No (0 pts) Intoxicated or Sedated No (0 pts) Impaired Gait No (0 pts) Mobility Assist Device Used No (0 pt) Altered Elimination No (0 pt) Score/Fall Risk Level 0 - 2 = Low Risk Oriented to surroundings, Hourly rounding (assess needs \T\ fall precautionary measures) done. Abuse screen: Denies threats or abuse. Denies injuries from another. Nutritional screening: No deficits noted. Tuberculosis screening: No symptoms or risk factors identified. Assessment: 10:25 Reassessment: See triage assessment. ld1 11:59 Reassessment: Patient appears in no apparent distress at this time. No changes from ld1 previously documented assessment. Patient and/or family updated on plan of care and expected duration. Pain level reassessed. Vital Signs: 10:22 BP 131 / 72; Pulse 75; Resp 18; Temp 97.8(TE); Pulse Ox 95% on R/A; Weight 108.86 kg; ld1 Height 5 ft. 9 in. ; Pain 9/10; 10:26 Pulse Ox 98% on 2 lpm NC; ld1 11:59 Pulse 89; Resp 18; Pulse Ox 100% on 3 lpm NC; ld1 10:22 Body Mass Index 35.44 (108.86 kg, 175.26 cm) ld1 10:22 Pain Scale: Adult ld1 ED Course: 09:39 Patient arrived in ED. mr 09:52 Prasanth Corona MD is Attending Physician. [facility] 10:23 Triage completed. ld1 10:23 Arm band placed on right wrist. ld1 10:25 Patient has correct armband on for positive identification. Placed in gown. Bed in low ld1 position. Call light in reach. Side rails up X2. desk monitor on. Pulse ox on. NIBP on. Door closed. Noise minimized. Warm blanket given. 10:25 No provider procedures requiring assistance completed. ld1 10:43 Zonia Arcos, RN is Primary Nurse. ld1 10:43 Basic Metabolic Panel Sent. bc6 10:43 CBC with Diff Sent. bc6 10:43 LFT's Sent. bc6 10:43 Magnesium Sent. bc6 10:43 NT PRO-BNP Sent. bc6 10:43 PT-INR Sent. bc6 10:43 Troponin HS Sent. bc6 10:43 Initial lab(s) drawn, by sd, sent to lab. Inserted saline lock: 20 gauge in right bc6 antecubital area, using aseptic technique. Blood collected. Flushed with 10 mL NS. 10:52 EKG done, by ED staff, reviewed by Prasanth Corona MD. bc6 11:08 XRAY Chest (1 view) In Process Unspecified. EDMS 11:09 Pelvis XRAY In Process Unspecified. EDMS 11:21 CT Abd/Pelvis - IV Contrast Only In Process Unspecified. EDMS 13:55 IV discontinued, intact, bleeding controlled, No redness/swelling at site. ld1 Administered Medications: 11:05 Drug: morphine IVP or IV 2 mg IVP once over 4 mins Route: IVP; Infused Over: 4 mins; ld1 Site: right forearm; 13:55 Follow up: Response: No adverse reaction ld1 11:11 Drug: Ondansetron IVP 4 mg IVP once; over 2 minutes Route: IVP; Site: right forearm; ld1 13:55 Follow up: Response: No adverse reaction ld1 11:11 Drug: Decadron - Dexamethasone IVP 10 mg IVP once Route: IVP; Site: right forearm; ld1 13:57 Follow up: Response: No adverse reaction ld1 11:12 Drug: NS 0.9% IV 500 ml 500 ml IV at 1 bolus once; to be given as a bolus over 30 ld1 minutes Volume: 500 ml; Route: IV; Rate: 1 bolus; Site: right forearm; 13:56 Follow up: Response: No adverse reaction; IV Status: Completed infusion; IV Intake: ld1 500ml 11:12 Drug: morphine IVP or IV 2 mg IVP once over 4 mins Route: IVP; Infused Over: 4 mins; ld1 Site: right forearm; 13:56 Follow up: Response: No adverse reaction ld1 Medication: 10:25 VIS not applicable for this client. ld1 Intake: 13:56 IV: 500ml; Total: 500ml. ld1 Outcome: :25 Discharge ordered by . daphnie 13:55 Discharged to home ambulatory, ld1 13:55 Condition: stable 13:55 Discharge instructions given to patient, Instructed on discharge instructions, follow up and referral plans. Demonstrated understanding of instructions, follow-up care, medications, Prescriptions given X 2, 13:57 Patient left the ED. ld1 Signatures: Dispatcher [employer] EDMS Prasanth Corona MD MD cha Rivera, Mary, Reg Reg mr Zonia Arcos, RN RN ld1 Adenike Calvo 6
[2024-05-11 14:25] VITALS: BP 131/72; TEMP 97.8
[2024-05-11 14:39] VITALS: O2SAT 100
== END 2024-05-11 13:57 | disposition home or self-care (01) ==
LOC: ER 09:36
DX: M25.552 Pain in left hip (principal); M54.50 Low back pain, unspecified; E66.9 Obesity, unspecified; R10.2 Pelvic and perineal pain
CPT/HCPCS: 85025; 81001; 80048; 36415; 83735; 85610; 80076; 84484; 83690; 83880; 74177; 71045; 72170; Q9967; J1100; J2270; J2405; J7040; 93005